=== PATIENT | female | born 1995 | race Caucasian/White ===

== ENCOUNTER 2016-06-02 13:39 | Outpatient (CLI) | payer BC, MEDICAID ==
[2016-06-02 14:53] LABS: APPEARANCE,URINE SLIGHTLY-CLOUDY; BILIRUBIN,URINE NEGATIVE (NEGATIVE); GLUCOSE, URINE NEGATIVE (NEGATIVE); KETONES,URINE NEGATIVE (NEGATIVE); LEUKOCYTE ESTERASE,URINE SMALL (NEGATIVE); NITRITE,URINE NEGATIVE (NEGATIVE); PROTEIN,URINE NEGATIVE (NEGATIVE); URINE SPECIFIC GRAVITY 1.005; UROBILINOGEN,URINE NEGATIVE mg/dL (<2.0)
[2016-06-02 15:24] LABS: URINE BARBITURATES SCREEN NEGATIVE; URINE METHADONE SCREEN NEGATIVE; URINE OPIATES LOW NEGATIVE; URINE PHENCYCLIDINE SCREEN NEGATIVE
--- NOTE | 2016-06-02 15:47 | Non Stress Test Report ---
Non Stress Test Datetime Report Generated by CPN: 06/02/2016 15:47 DEMOGRAPHIC EGA NST: 40.5 INDICATION Indication for Study: Other Indication for Study (NST) Other: LC MONITORING Monitor Explained: Monitor Explained; Other Time on Monitor: 06/02/2016 14:03 Time off Monitor: 06/02/2016 14:23 NST Duration: 20 NST INTERVENTIONS NST Interventions: None Physician Notified NST: C. Rolle CNM BABY A: [id number] BABY A Movement : Present Contraction Frequency : 1-2 FHR Baseline : 145 Accelerations : 15X15 Decelerations : None Variability : Moderate 6-25bpm NST Review: Meets Criteria for Reactive NST NST Review and Verified By : D Bellavance RNC NST Results: Reactive NST REPORT Report Trigger: Send Report
== END 2016-06-02 15:43 | disposition home or self-care (01) ==
LOC: LC 13:39
PROVIDERS: ATTEND Obstetrics & Gynecology
PROC: 4A1HXCZ Monitoring of Products of Conception, Cardiac Rate, External Approach (ICD-10-PCS; principal; 2016-06-02)
DX: O47.1 False labor at or after 37 completed weeks of gestation (principal); O48.0 Post-term pregnancy; Z3A.40 40 weeks gestation of pregnancy
CPT/HCPCS: 59025; 80307; 81005

== ENCOUNTER 2016-06-02 18:27 | Inpatient (IN) | payer BC, MEDICAID ==
[2016-06-02] MEDS ORDERED: RINGERS SOLUTION,LACTATED 1,000 ML IV ONE (18:41)
[2016-06-02] MEDS ORDERED: RINGERS SOLUTION,LACTATED 1,000 ML IV PRN (18:41)
[2016-06-02] MEDS ORDERED: DEXTROSE 5%-LACTATED RINGERS 1,000 ML IV PRN (18:41)
[2016-06-02 19:17] LABS: ABSOLUTE BASOPHILS # (AUTO) 0.1 10^3/uL (0.0-0.2); ABSOLUTE EOSINOPHILS # (AUTO) 0.1 10^3/uL (0.0-0.6); ABSOLUTE LYMPHOCYTES (AUTO) 1.7 10^3/uL (0.5-4.7); ABSOLUTE MONOCYTES (AUTO) 1.2 10^3/uL (0.1-1.4); ABSOLUTE NEUT (AUTO) 14.9 10^3/uL (1.7-8.2); BASOPHILS % (AUTO) 0.4 % (0-2); EOSINOPHILS % (AUTO) 0.3 % (0-6); HEMATOCRIT 43.3 % (36.0-47.0); HEMOGLOBIN 15.1 g/dL (12.0-15.5); LYMPHOCYTES % (AUTO) 9.3 % (13-45); MEAN CORPUSCULAR HEMOGLOBIN 29.5 pg (27.0-33.4); MEAN CORPUSCULAR HGB CONC 34.9 g/dL (32.0-36.0); MEAN CORPUSCULAR VOLUME 85 fl (80-97); MONOCYTES % (AUTO) 6.7 % (3-13); RED BLOOD COUNT 5.12 10^6/uL (3.72-5.28); RED CELL DISTRIBUTION WIDTH 17.8 % (11.5-14.0); SEGMENTED NEUTROPHILS % (AUTO) 83.3 % (42-78); WHITE BLOOD COUNT 17.9 10^3/uL (4.0-10.5)
[2016-06-02] MEDS ORDERED: LIDOCAINE 1% INJ-PF (10 MG/ML) 30 ML SDV ONE (19:39)
[2016-06-02] MEDS ORDERED: MISOPROSTOL 0.2 MG TABLET ONE (19:39)
[2016-06-02] MEDS ORDERED: OXYTOCIN/NORMAL SALINE 20 UNIT/1,000 ML RTUINJ ONE (19:39)
--- NOTE | 2016-06-02 20:00 | L&D Flow Sheet ---
LD Flowsheet Datetime Report Generated by CPN: 06/02/2016 20:00 Datetime: 06/02/2016 19:41 Frequency (min): q2 min (Taryn Knight RN) Pain Scale: 4 (Taryn Knight RN) Pain Presence: Intermittent (Taryn Knight RN) Pain Type: Cramping; Contraction (Taryn Knight RN) Pain Location: Abdomen; Back (Taryn Knight RN) Pain Goal: 0 (Taryn Knight RN) Pain Relief Measures: Comfort Measures (Taryn Knight RN) Pain Coping: Talking Through Contractions; Breathing Through Contractions (Taryn Knight RN) Dilatation (cm): 7.0 (Taryn Knight RN) Effacement (%): 90 (Taryn Knight RN) Station: 0 (Taryn Knight RN) Exam by: ROSIE Martinez (Taryn Knight RN) Membrane Status: Intact (Taryn Knight RN) Vaginal Bleeding: Normal Show (Taryn Knight RN) Level of Consciousness: Fully Conscious (Taryn Knight RN) DTR's/Clonus: DTRs 2+; No Clonus (Taryn Knight RN) Headache: Denies (Taryn Knight RN) Breath Sounds, Left: Clear and Equal (Taryn Knight RN) Breath Sounds, Right: Clear and Equal (Taryn Knight RN) Nausea/Vomiting: Present (Taryn Kinght RN) RUQ Epigastric Pain: Denies (Taryn Knight, RN) Instructional Method: Verbal; Patient Instructed; Family/Support Person Instructed; Verbalized Understanding (Taryn Knight RN) Plan of Care: Plan of Care Discussed; Vaginal Delivery (Taryn Knight RN) Unit Routine: [place] to Room; Call Solorzano; Bed; Visiting Policy; Waiting Areas; Infant Security; Phone/Cell Phone Use; Photography; Unit Personnel; Consents Signed; Handwashing; Flu/Illness Precautions; Monitoring; IV Pumps; Safety/Fall Risk Prevention; Diet/Nutrition Services; Bathroom Privileges (Taryn Knight RN) LaborFlag: Antepartum (QS system process) Datetime: 06/02/2016 18:53 Medication Comments: LR (Demarco Gallardo RN) IV/Blood Work: IV Started; IV Bolus Started; Labs Drawn (Demarco Gallardo RN) Procedures: Consents Signed (Demarco Gallardo RN) Patient Care Comments: 18G R Forearm, good blood return, site wnl, pt tolerated well. (Demarco Gallardo RN) Datetime: 06/02/2016 18:52 Patient Position/Activity: Hands-Knees (Demarco Sami, RN) Patient Care Comments: per pt request (Demarco Sami, RN) Datetime: 06/02/2016 15:43 Communication Comments: Pt ambulated off floor in stable condition (Jeanne Bernstein, RN) Datetime: 06/02/2016 15:40 Communication Comments: D/C instructions given. Reviewed kick counts and labor signs. Pt verbalizes understading. (Jeanne Bernstein, RN) Datetime: 06/02/2016 15:31 Communication Comments: D/C order received per C. Rolle CNM (Jeanne Bernstein RN) Datetime: 06/02/2016 15:30 Dilatation (cm): 3.0 (Jeanne Bernstein RN) Effacement (%): 80 (Jeanne Bernstein RN) Station: -1 (Jeanne Bernstein RN) Exam by: Cara Bernstein RN (Jeanne Bernstein RN) Datetime: 06/02/2016 14:23 Monitor Mode: External; Palpation (Jeanne Bernstein RN) Frequency (min): 1-2 (Jeanne Bernstein RN) Quality: Mild/Moderate (Jeanne Bernstein RN) Duration (sec): 50-70 (Jeanne Bernstein RN) Duration Criteria: Less than Two 120 Second Contractions (Jeanne Bernstein RN) Pattern: Normal: <= 5 Contractions in 10 Minutes (Jeanne Bernstein RN) Resting Tone (Palpate): Relaxed (Jeanne Bernstein RN) Monitor Mode: External US (Jeanne Bernstein RN) FHR Baseline Rate : 145 (Jeanne Bernstein RN) Variability: Moderate 6-25 bpm (Jeanne Bernstein RN) Accelerations: 15X15 (Jeanne Bernstein RN) Decelerations: None (Jeanne Bernstein RN) Communication Comments: Monitors removed for pt to walk for one hour (Jeanne Bernstein RN) Datetime: 06/02/2016 14:21 NBP Sys/Tessie/Mean (mmHg): 96 (QS system process) : 55 (QS system process) : 73 (QS system process) Pulse: 85 (QS system process) LaborFlag: Antepartum (QS system process) Datetime: 06/02/2016 14:15 Dilatation (cm): 3.0 (Jeanne Bernstein RN) Effacement (%): 80 (Jeanne Bernstein RN) Station: -1 (Jeanne Bernstein RN) Exam by: Cara Bernstein RN (Jeanne Bernstein RN) Datetime: 06/02/2016 14:08 Frequency (min): pt states 2 minutes apart (Jeanne Bernstein RN) Pain Scale: 2 (Jeanne Bernstein RN) Pain Presence: Intermittent (Jeanne Bernstein RN) Pain Type: Contraction (Jeanne Bernstein RN) Pain Location: Abdomen; Back (Jeanne Bernstein RN) Vaginal Bleeding: None (Jeanne Bernstein RN) Level of Consciousness: Fully Conscious (Jeanne Bernstein RN) DTR's/Clonus: DTRs 2+; No Clonus (Jeanne Bernstein RN) Headache: Denies (Jeanne Bernstein RN) Breath Sounds, Left: Clear and Equal (Jeanne Bernstein RN) Breath Sounds, Right: Clear and Equal (Jeanne Bernstein RN) Nausea/Vomiting: Denies (Jeanne Bernstein RN) RUQ Epigastric Pain: Denies (Jeanne Bernstein RN) Instructional Method: Verbal; Patient Instructed; Family/Support Person Instructed; Verbalized Understanding (Jeanne Bernstein RN) Plan of Care: Plan of Care Discussed (Jeanne Bernstein RN) Unit Routine: [place] to Room; Call Solorzano; Bed; Handwashing; Monitoring; Bathroom Privileges (Jeanne Bernstein RN) LaborFlag: Antepartum (QS system process) Datetime: 06/02/2016 14:03 Monitor Interventions for UA: Marcellus Adjusted (Jeanne Bernstein, RN) Datetime: 06/02/2016 14:02 Patient Position/Activity: Left Lateral (Jeanne Bernstein RN) I/O Interventions: Clear Liquids Given (Jeanne Bernstein RN)
[2016-06-02] MEDS ORDERED: FENTANYL CITRATE INJ/PF 100 MCG/2 ML AMPUL IV ONE (21:03)
[2016-06-02] MEDS ORDERED: FENTANYL CITRATE INJ/PF 100 MCG/2 ML AMPUL ONE (21:06)
--- NOTE | 2016-06-02 22:00 | L&D Flow Sheet ---
LD Flowsheet Datetime Report Generated by CPN: 06/02/2016 22:00 Datetime: 06/02/2016 21:30 Monitor Mode: External; Palpation (Taryn Field, RN) Frequency (min): 1.5-3 (Taryn Field, RN) Quality: Moderate to Strong (Taryn Field, RN) Duration (sec): 60-90 (Taryn Field, RN) Pattern: Normal: <= 5 Contractions in 10 Minutes (Taryn Field, RN) Resting Tone (Palpate): Relaxed (Taryn Field, RN) Monitor Mode: External US (Taryn Field, RN) FHR Baseline Rate : 120 (Taryn Field, RN) Variability: Moderate 6-25 bpm (Taryn Field, RN) Accelerations: 15X15 (Taryn Field, RN) Decelerations: Late (Taryn Field, RN) Datetime: 06/02/2016 21:06 Analgesics/Sedatives: Fentanyl (mcg) @ 100 (Taryn Knight RN) Datetime: 06/02/2016 21:01 Communication: Provider Orders Received (Taryn Knight RN) Communication Comments: Informed Dr. Tam of patient's request for some IV pain meds; orders received for 100 mcg of Fentanyl (Taryn Knight RN) Datetime: 06/02/2016 21:00 Monitor Mode: External; Palpation (Taryn Knight RN) Frequency (min): 1.5-3.5 (Taryn Knight RN) Quality: Moderate to Strong (Taryn Knight RN) Duration (sec): 60-80 (Taryn Knight RN) Resting Tone (Palpate): Relaxed (Taryn Knight RN) Monitor Mode: External US (Taryn Knight RN) FHR Baseline Rate : 120 (Taryn Knight RN) Variability: Moderate 6-25 bpm (Taryn Knight RN) Accelerations: 15X15 (Taryn Knight RN) Decelerations: None (Taryn Knight RN) Datetime: 06/02/2016 20:57 Patient Position/Activity: Tailors (Taryn Knight RN) Datetime: 06/02/2016 20:54 Dilatation (cm): 6.5 (Taryn Knight RN) Effacement (%): 90 (Taryn Knight RN) Station: -2 (Taryn Knight RN) Exam by: Dr. Tam (Taryn Knight RN) Membrane Status: Meconium (Lita Parkinson RN) Membranes Ruptured Date/Time: 06/02/2016 20:54 (Lita Parkinson RN) Membranes Rupture Method: Artificial (Taryn Knight RN) Amniotic Fluid Color: Moderate [facility] Amniotic Fluid Amount: Moderate (Taryn Knight, RN) Datetime: 06/02/2016 20:52 Communication Comments: Dr. Tam at bedside (Taryn [facility], ) Datetime: 06/02/2016 20:43 I/O Interventions: Up to BR [facility] Datetime: 06/02/2016 20:30 Monitor Mode: External; Palpation [facility] Frequency (min): 1.5-3.5 (Taryn Field, RN) Quality: Moderate to Strong (Taryn Field, RN) Duration (sec): 50-90 (Taryn Field, RN) Pattern: Normal: <= 5 Contractions in 10 Minutes (Taryn Field, RN) Resting Tone (Palpate): Relaxed (Taryn Field, RN) Monitor Mode: External US (Taryn Field, RN) FHR Baseline Rate : 120 (Taryn Field, RN) Variability: Moderate 6-25 bpm (Taryn Field, RN) Accelerations: 15X15 (Taryn Field, RN) Decelerations: None (Taryn Field, RN) Datetime: 06/02/2016 20:13 Nausea/Vomiting: Present (Taryn Knight, RN) Datetime: 06/02/2016 20:05 NBP Sys/Tessie/Mean (mmHg): 117 (QS system process) : 58 (QS system process) : 83 (QS system process) Pulse: 94 (QS system process) LaborFlag: Antepartum (QS system process) Datetime: 06/02/2016 20:00 Monitor Mode: External; Palpation (Taryn Knight RN) Frequency (min): 2-2.5 (Taryn Knight RN) Quality: Moderate to Strong (Taryn Knight RN) Duration (sec): 60-80 (Taryn Knight RN) Pattern: Normal: <= 5 Contractions in 10 Minutes (Taryn Knight RN) Resting Tone (Palpate): Relaxed (Taryn Knight RN) Monitor Mode: External US (Taryn Knight RN) FHR Baseline Rate : 125 (Taryn Knight RN) Variability: Moderate 6-25 bpm (Taryn Knight RN) Accelerations: 15X15 (Taryn Knight RN) Decelerations: None (Taryn Knight RN)
[2016-06-02] MEDS ORDERED: OXYTOCIN/NORMAL SALINE 1,000 ML IV PRN (23:28)
[2016-06-02] MEDS ORDERED: DIBUCAINE 1% OINTMENT 28 GM TP PRN (23:28)
[2016-06-02] MEDS ORDERED: DIPH/PERTUSS(ACELL)/TETANUS VAC/PF 0.5 ML SYR (>=10YO) IM PRN (23:28)
[2016-06-02] MEDS ORDERED: ZOLPIDEM TARTRATE 5 MG TABLET PO PRN (23:28)
[2016-06-02] MEDS ORDERED: ACETAMINOPHEN WITH CODEINE #3 TABLET PO PRN ×2 (23:28)
[2016-06-02] MEDS ORDERED: MEASLES,MUMPS&RUBELLA VACC/PF 0.5 ML VIAL SUBCUT PRN (23:28)
[2016-06-02] MEDS ORDERED: BENZOCAINE/MENTHOL AEROSOL SPRAY 56 ML TOP PRN (23:28)
--- NOTE | 2016-06-03 01:44 | Delivery Summary ---
Del Sum A-C Datetime Report Generated by CPN: 06/03/2016 01:43 ADMISSION DATA Chief Complaint: Uterine Contractions Indication for Induction: Not Applicable Admission Impression: Term, Intrauterine ; Active Labor DELIVERY PERSONNEL Delivery Doctor:: Natalee Tam MD Labor and Delivery Nurse:: Taryn Knight, ethnic origins teacher Nurse:: Lita Parkinson, RN Green Hide Inspector/EYE SURGEON: Júnior Ertel, EYE SURGEON MATERNAL INFORMATION Delivery Anesthesia: None Medications After Delivery: Pitocin Bolus-Please Comment Meds After Delivery Comment: pitocin 20 units in 1000 mL NSS after delivery of placenta Estimated Blood Loss (ml): 200 Maternal Complications: None Provider Comments: meconium LABOR SUMMARY EDC: 05/28/2016 00:00 No. Babies in Womb: 1 Attempted: No Labor Anesthesia: IV Sedation LABOR INFORMATION Reason for Induction: Not Applicable Onset of Labor: 06/02/2016 18:52 Complete Dilatation: 06/02/2016 22:47 Oxytocin: N/A Group B Beta Strep: negative Antibiotics # of Doses: 0 Steroids Given: None Reason Steroids Not Administered: Not Applicable MEMBRANES Membranes Rupture Method: Artificial Rupture of Membranes: 06/02/2016 20:54 Length of Rupture (hr): 2.38 Amniotic Fluid Color: Moderate Meconium Amniotic Fluid Amount: Moderate Amniotic Fluid Odor: Normal STAGES OF LABOR Stage 1 hr: 3 Stage 1 min: 55 Stage 2 hr: 0 Stage 2 min: 30 Stage 3 hr: 0 Stage 3 min: 5 Total Time in Labor hr: 4 Total Time in Labor min: 30 VAGINAL DELIVERY Episiotomy: None Laceration Extension: N/A Laceration Type: None Laceration Repair: Not Applicable Sponge Count Correct: N/A Sharps Count Correct: N/A CSECTION DELIVERY Primary Indication: N/A Secondary Indication: N/A CSection Incidence: N/A Labor: N/A Elective: N/A CSection Incision: N/A BABY A INFORMATION Infant Delivery Date/Time: 06/02/2016 23:17 Method of Delivery: Vaginal Born in Route : No : N/A Forceps: N/A Vacuum Extraction: N/A Shoulder Dystocia : No PRESENTATION/POSITION BABY A Presentation: Cephalic Cephalic Presentation: Vertex Vertex Position: Right Occipital Anterior Breech Presentation: N/A PLACENTA INFORMATION BABY A Placenta Delivery Time : 06/02/2016 23:22 Placenta Method of Delivery: Spontaneous Placenta Status: Delivered SCORES BABY A Heart Rate 1 min: >100 bpm Resp Effort 1 min: Good Cry Reflex Irritability 1 min: Cough or Sneeze or Pulls Away Muscle Tone 1 min: Active Motion Color 1 min: Body Mutual, Extremities Blue Resuscitation Effort 1 min: Tactile Stimulation SCORE 1 MIN: 9 Heart Rate 5 min: >100 bpm Resp Effort 5 min: Good Cry Reflex Irritability 5 min: Cough or Sneeze or Pulls Away Muscle Tone 5 min: Active Motion Color 5 min: Body Mutual, Extremities Blue Resuscitation Effort 5 min: Tactile Stimulation SCORE 5 MIN: 9 INFANT INFORMATION BABY A Gestational Age at Delivery: 40.5 Gestational Status: Full Term- 39- 40.6 Weeks Infant Outcome : Liveborn Infant Condition : Stable Infant Sex: Male IDENTIFICATION BABY A Verification Date/Time: 06/02/2016 23:32 ID Band Number: [id number] Mother's Name Verified: Yes RN Verifying Infant: SPedro Luis Parkinson, RN Additional Verifying Personnel: Lesly Gorman, EYE SURGEON/US WEIGHT/LENGTH BABY A Birthweight (gm): 3505 Infant Weight (lb): 7 Infant Weight (oz): 12 Infant Length (in): 19.50 Length (cm): 49.53 CORD INFORMATION BABY A No. Cord Vessels: 3 Nuchal Cord : N/A Cord Blood Taken: Yes-For Storage (Mom's Blood type +) Infant Suction: Mouth; Nose ASSESSMENT BABY A Infant Complications: Meconium Physical Findings at Delivery: Within Normal Limits Infant Respirations: Appears Normal Skin to Skin: Yes Clay Carman/ALS Called : No Infant Care By: S. Iratibeaharveyir, RN Transferred To: Remains with Mother BABY B INFORMATION : N/A SIGNATURES Signature: with User ID: [email or web address]
[2016-06-03] MEDS: IBUPROFEN 800 MG TABLET PO SCH ×3 (05:41→22:21)
--- NOTE | 2016-06-03 06:00 | L&D General Admission ---
General Admit Datetime Report Generated by CPN: 06/03/2016 06:00 INFORMATION Patient Age: 20 (02/29/2016 18:27:QS system process) EDC: 05/28/2016 00:00 (02/29/2016 18:30:Jeanne Rosenthal RN) : 1 (02/29/2016 18:30:Jeanne Rosenthal RN) Para: 0 (06/02/2016 15:46:Jeanne Bernstein RN) Term: 0 (02/29/2016 18:30:Jeanne Rosenthal RN) : 0 (02/29/2016 18:30:Jeanne Rosenthal RN) Spontaneous Abortions: 0 (02/29/2016 18:30:Jeanne Rosenthal RN) Induced Abortions: 0 (02/29/2016 18:30:Jeanne Rosenthal RN) Livin (02/29/2016 18:30:Jeanne Rosenthal RN) Cesareans: 0 (02/29/2016 18:30:Jeanne Rosenthal RN) VBACs: 0 (02/29/2016 18:30:Jeanne Rosenthal RN) Ectopic: 0 (02/29/2016 18:30:Jeanne Rosenthal RN) Multiple Births: 0 (02/29/2016 18:30:Jeanne Rosenthal RN) Baby, Number in Womb: 1 (06/02/2016 15:46:Jeanne Bernstein RN) CARE Primary Funds Transfer Clerk[facility] (02/29/2016 18:30:Jeanne Rosenthal RN) Month of 1st Visit: 6 weeks (02/29/2016 18:30:Lety Barrow RN) Adequate Care: Yes (02/29/2016 18:30:Jeanne Rosenthal RN) Prepregnancy Weight (lb): 122 (02/29/2016 18:30:Jeanne Rosenthal RN) Prepregnancy Weight (kg): 55.5 (02/29/2016 18:30:QS system process) Height (in): 63 (06/03/2016 02:16:QS system process) ALLERGIES Medication Allergy: No (02/29/2016 18:30:Jeanne Rosenthal RN) Medication Allergies: No Known Allergies (06/02/2016) (06/02/2016 13:56:QS system process) Latex Allergy: No Latex Allergies (02/29/2016 18:30:Jeanne Rosenthal RN) Food Allergies: None (02/29/2016 18:30:Jeanne Rosenthal RN) Environmental Allergies: None (02/29/2016 18:30:Jeanne Rosenthal RN) COMMUNICATION Primary Language: Hungarian (02/29/2016 18:30:Jeanne Rosenthal RN) Medical Tx Preferred Language: Hungarian (02/29/2016 18:30:Jeanne Rosenthal RN) DEMOGRAPHICS Address: [address] [place] [id number] (02/29/2016 18:27:QS system process) Zipcode: [address] (02/29/2016 18:27:QS system process) Home (02/29/2016 18:27:QS system process) SSN: [id number] (02/29/2016 18:27:QS system process) Next of Kin Name: ALLYSON TRIPLETT (06/02/2016 13:39:QS system process) Next of Kin (06/02/2016 13:39:QS system process) Next of Kin Relationship: OR (06/02/2016 13:39:QS system process) Date of : 1995 (02/29/2016 18:27:QS system process) Marital Status: Single (02/29/2016 18:27:QS system process) Sex: Female (02/29/2016 18:27:QS system process) Race: (02/29/2016 18:27:QS system process) Ethnicity: Non- or (02/29/2016 18:27:QS system process) Baptism: None (02/29/2016 18:27:QS system process) DRUG AND ALCOHOL USE Alcohol: No (02/29/2016 18:30:Jeanne Rosenthal RN) Cigarettes: Former Smoker. [id number] (02/29/2016 18:30:Jeanne Rosenthal RN) Marijuana: No (02/29/2016 18:30:Jeanne Rosenthal RN) Cocaine: No (02/29/2016 18:30:Jeanne Rosenthal RN) Other Illicit Drugs: No (02/29/2016 18:30:Jeanne Rosenthal RN) VACCINE HISTORY Influenza Vaccine: No (02/29/2016 18:30:Lety Barrow RN) Pneumococcal Vaccine: No (02/29/2016 18:30:Lety Barrow RN) Tetanus Vaccine: Yes (02/29/2016 18:30:Lety Barrow RN) Tdap Vaccine: Yes (02/29/2016 18:30:Jeanne Bernstein RN) Hepatitis B Vaccine: Yes (02/29/2016 18:30:Lety Barrow RN) Mastic Man: [facility] (02/29/2016 18:30:Jeanne Bernstein RN) Feeding Preference: Breast (02/29/2016 18:30:Lety Barrow RN) Benefit of Breast Feed Discussed: Yes (02/29/2016 18:30:Jeanne Bernstein RN) Circumcision: Yes (02/29/2016 18:30:Lety Barrow RN) Classes Attended: No (02/29/2016 18:30:Lety Barrow RN) Tubal Ligation: No (02/29/2016 18:30:Lety Barrow RN) Tubal Authorization Signed: N/A (02/29/2016 18:30:Lety Barrow RN) Consent: N/A (02/29/2016 18:30:Lety Barrow RN) Consent Signed: N/A (02/29/2016 18:30:Jeanne Bernstein RN) Pain Management Plans: None (02/29/2016 18:30:Lety Barrow RN) Other Labor and Delivery Plans: delayed cord clamping (02/29/2016 18:30:Lety Barrow RN) Support Person: allyson triplett (02/29/2016 18:30:Lety Barrow RN) Support Person Relationship: Other (02/29/2016 18:30:Lety Barrow RN) Other Relationship: fiance (02/29/2016 18:30:Lety Barrow RN) Cultural/Spritual Practice: No (02/29/2016 18:30:Jeanne Bernstein RN) Spir/Cult Dietary Needs: No (02/29/2016 18:30:Jeanne Bernstein RN) LIVING SITUATION/DISCHARGE PLAN Living Arrangements: House (02/29/2016 18:30:Lety Barrow RN) Adequate Access to:: Electric; Heat; Refrigeration; Plumbing/Running water; Phone; Transportation (02/29/2016 18:30:Lety Barrow RN) WIC Program: Yes (02/29/2016 18:30:Lety Barrow RN) Discharge Battery Parts Assembler Person: allyson (02/29/2016 18:30:Lety Barrow RN) Person to Help after Discharge: allyson (02/29/2016 18:30:Lety Barrow RN) Currently Using Commun Resources: Yes (02/29/2016 18:30:Lety Barrow RN) Specify Current Resource Used: Medicaid (02/29/2016 18:30:Lety Barrow RN) Outside Agency/Railcar Switchman: No (02/29/2016 18:30:Lety Barrow RN) Car Seat for Discharge: Yes (02/29/2016 18:30:Lety Barrow RN) Adoption Requested: No (02/29/2016 18:30:Lety Barrow RN) Pt Contact w/ Post : N/A (02/29/2016 18:30:Lety Barrow RN) LABS Blood Type: A Positive (02/29/2016 18:30:Jeanne Rosenthal RN) Antibody Screen: Negative (02/29/2016 18:30:Jeanne Rosenthal RN) Rho(G) this : Not Applicable (02/29/2016 18:30:Jeanne Rosenthal RN) Hemoglobin: 15.1 (06/02/2016 18:49:QS system process) Hematocrit: 43.3 (06/02/2016 18:49:QS system process) MCV: 85 (06/02/2016 18:49:QS system process) Group Beta Strep: negative (02/29/2016 18:30:Jeanne Bernstein RN) Gonorrhea: Negative (02/29/2016 18:30:Jeanne Bernstein RN) Chlamydia: Negative (02/29/2016 18:30:Jeanne Bernstein RN) RPR/VDRL: Nonreactive (02/29/2016 18:30:Jeanne Rosenthal RN) HIV Exposure Test: Negative (02/29/2016 18:30:Jeanne Rosenthal RN) Hepatitis B: Negative (02/29/2016 18:30:Jeanne Rosenthal RN) Rubella: Immune (02/29/2016 18:30:Jeanne oRsenthal RN) OB/PREVIOUS HISTORY Current Procedures: Ultrasound; NST (02/29/2016 18:30:Jeanne Bernstein RN) History of Previous : No (02/29/2016 18:30:Lety Barrow RN) History of Gestational Diabetes: No (02/29/2016 18:30:Jeanne Bernstein RN) History of PIH: No (02/29/2016 18:30:Jeanne Bernstein RN) History of Incompetent Cervix: No (02/29/2016 18:30:Lety Barrow RN) History of Placenta Previa/Abrup: No (02/29/2016 18:30:Jeanne Bernstein RN) History of Macrosomia: No (02/29/2016 18:30:Jeanne Bernstein RN) History of IUGR: No (02/29/2016 18:30:Jeanne Bernstein RN) History of Hemorrhage: No (02/29/2016 18:30:Lety Barrow RN) History of Loss/Stillborn: No (02/29/2016 18:30:Lety Barrow RN) History of : No (02/29/2016 18:30:Lety Barrow RN) History of D (Rh) Sensitization: No (02/29/2016 18:30:Lety Barrow RN) History Recurrent Loss/Stillborn: No (02/29/2016 18:30:Lety Barrow RN) History Depression/PP Depression: No (02/29/2016 18:30:Lety Barrow RN) History of Uterine Anomaly/ERMIAS: No (02/29/2016 18:30:Lety Barrow RN) History of Infertility: No (02/29/2016 18:30:Lety Barrow RN) History of ART Treatment: No (02/29/2016 18:30:Lety Barrow RN) History of ERMIAS: No (02/29/2016 18:30:Lety Barrow RN) Comments Obstetrical History: G1: current , anterior placenta (02/29/2016 18:30:Lety Barrow RN) MEDICAL HISTORY Med Hx Diabetes: No (02/29/2016 18:30:Lety Barrow RN) Med Hx Hypertension: No (02/29/2016 18:30:Lety Barrow RN) Med Hx Heart Disease: No (02/29/2016 18:30:Lety Barrow RN) Med Hx Autoimmune Disorder: No (02/29/2016 18:30:Lety Barrow RN) Med Hx Kidney Disease/UTI: No (02/29/2016 18:30:Lety Barrow RN) Med Hx Neurologic/Epilepsy: No (02/29/2016 18:30:Lety Barrow RN) Med Hx Psychiatric Disorders: No (02/29/2016 18:30:Lety Barrow RN) Med Hx Hepatitis/Liver Disease: No (02/29/2016 18:30:Lety Barrow RN) Med Hx Varicosities/Phlebitis: No (02/29/2016 18:30:Lety Barrow RN) Med Hx Thyroid Dysfunction: No (02/29/2016 18:30:Lety Barrow RN) Med Hx Trauma/Violence: No (02/29/2016 18:30:Lety Barrow RN) Med Hx Blood Transfusion: No (02/29/2016 18:30:Lety Barrow RN) Med Hx Pulmonary (Asthma,TB): Yes (02/29/2016 18:30:Lety Barrow RN) Med Hx Breast: No (02/29/2016 18:30:Lety Barrow RN) Med Hx TRAFFIC LINE PAINTER Surgery: No (02/29/2016 18:30:Lety Barrow RN) Med Hx Hospitalization/Surgery: Yes (02/29/2016 18:30:Lety Barrow RN) Med Hx Anesthetic Complications: No (02/29/2016 18:30:Lety Barrow RN) Med Hx Abnormal Pap Smear: No (02/29/2016 18:30:Lety Barrow RN) Other Medical Diseases: No (02/29/2016 18:30:Lety Barrow RN) Med Hx Significant Family Hx: No (02/29/2016 18:30:Lety Barrow RN) Details of Med/Surg Hx: ashtma: simbacort, albuterol as needed. hospitalized as child for [place] at age 6 seasonal allergies (02/29/2016 18:30:Lety Barrow RN) INFECTIOUS HISTORY Inf Hx Gonorrhea: No (02/29/2016 18:30:Lety Barrow RN) Inf Hx Chlamydia: No (02/29/2016 18:30:Lety Barrow RN) Inf Hx Syphilis: No (02/29/2016 18:30:Lety Barrow RN) Inf Hx HIV/AIDS: No (02/29/2016 18:30:Lety Barrow RN) Inf Hx Human Papilloma Virus: No (02/29/2016 18:30:Lety Barrow RN) Inf Hx Pt/Partner Genital Herpes: No (02/29/2016 18:30:Lety Barrow RN) Inf Hx Tuberculosis/Exposure: No (02/29/2016 18:30:Lety Barrow RN) Inf Hx Hepatitis B,C: No (02/29/2016 18:30:Lety Barrow RN) Inf Hx Rash or Viral Illness: No (02/29/2016 18:30:Lety Barrow RN) GENETIC HISTORY Gen Hx Age >=35 at LAUREN: No (02/29/2016 18:30:Lety Barrow RN) Gen Hx Thalassemia: No (02/29/2016 18:30:Lety Barrow RN) Gen Hx Congenital Heart Defect: No (02/29/2016 18:30:Lety Barrow RN) Gen Hx Neural Tube Defect: No (02/29/2016 18:30:Lety Barrow RN) Gen Hx Down's Syndrome: No (02/29/2016 18:30:Lety Barrow RN) Gen Hx Zi-Sachs: No (02/29/2016 18:30:Lety Barrow RN) Gen Hx Domo: No (02/29/2016 18:30:Lety Barrow RN) Gen Hx Familial Dysautonomia: No (02/29/2016 18:30:Lety Barrow RN) Gen Hx Sickle Cell Disease/Trait: No (02/29/2016 18:30:Lety Barrow RN) Gen Hx Hemophilia/Blood Disorder: No (02/29/2016 18:30:Lety Barrow RN) Gen Hx Muscular Dystrophy: No (02/29/2016 18:30:Lety Barrow RN) Gen Hx Cystic Fibrosis: No (02/29/2016 18:30:Lety Barrow RN) Gen Hx Huntingtons Chorea: No (02/29/2016 18:30:Lety Barrow RN) Gen Hx Mental Retardation/Autism: No (02/29/2016 18:30:Lety Barrow RN) Gen Hx Tested for Fragile X: No (02/29/2016 18:30:Leyt Barrow RN) Gen Hx Other Inher/Chromosomal: No (02/29/2016 18:30:Lety Barrow RN) Gen Hx Maternal Metabolic DO: No (02/29/2016 18:30:Lety Barrow RN) Gen Hx Pt Father or FOB Defect: No (02/29/2016 18:30:Lety Barrow RN) Gen Hx Other Genetic History: No (02/29/2016 18:30:Lety Barrow RN) Gen Hx Drugs/Meds since LMP: Yes (02/29/2016 18:30:Lety Barrow RN) Gen Hx Medications: PNV, alegra, simbacort, albuterol PRN (02/29/2016 18:30:Lety Barrow RN)
--- NOTE | 2016-06-03 06:00 | L&D Current Admission ---
Current Admit Datetime Report Generated by CPN: 06/03/2016 06:00 ADMISSION INFORMATION Current Admit Date/Time: 06/02/2016 18:41 (06/02/2016 18:41:Demarco Gallardo RN) Reason for Admission: Onset of Labor (06/02/2016 18:41:Demarco Gallardo RN) Chief Complaint: Contractions (06/02/2016 19:41:Taryn Knight RN) Medications During : Diphenhydramine (Benedryl); Vitamin; Acetaminophen (Tylenol) (06/02/2016 18:41:Demarco Gallardo RN) EGA per Dates: 40.5 (06/02/2016 18:41:QS system process) Method of Arrival: Ambulatory (06/02/2016 18:41:Demarco Gallardo RN) Admitted From: Home (06/02/2016 18:41:Demarco Gallardo RN) Reason for Induction: Not Applicable (06/02/2016 18:41:Demarco Gallardo RN) Records Available: Yes (06/02/2016 18:41:Demarco Gallardo RN) General Admission Information: Reviewed; Updated; Confirmed (06/02/2016 18:41:Demarco Gallardo RN) General Admission Reviewed By: Benji Gallardo RN (06/02/2016 18:41:Demarco Gallardo RN) BELONGINGS/ADVANCED DIRECTIVES Disposition of Belongings: Kept with Patient (06/02/2016 18:41:Demarco Gallardo RN) Comments Regarding Disposition: See [facility] belongings form filled out by pt (06/02/2016 18:41:Demarco Gallardo RN) Advance Direct for Healthcare: No, and Wants No Information (06/02/2016 18:41:Demarco Gallardo RN) Durable Power of Freight Rate Clerk: No (06/02/2016 18:41:Demarco Gallardo RN) Living Will: No (06/02/2016 18:41:Demarco Gallardo RN) Organ Donor: No (06/02/2016 18:41:Demarco Gallardo RN) Pt Rights Information Given: Yes (06/02/2016 18:41:Demarco Gallardo RN) Pt Understands Pt Rights: Yes (06/02/2016 18:41:Demarco Gallardo RN) LEARNING ASSESSMENT Knowledge Level: Understands L_D Process (06/02/2016 18:41:Demarco Gallardo RN) Barriers to Learning: None (06/02/2016 18:41:Demarco Gallardo RN) Learning Readiness: Motivated (06/02/2016 18:41:Demarco Gallardo RN) Learns Best By: 1 to 1 Instruction (06/02/2016 18:41:Demarco Gallardo RN) Learning Needs: Labor and Delivery Process; Pain Management; Symptoms to Report; Treatment Plan; Medication (06/02/2016 18:41:Demarco Gallardo RN) DOMESTIC VIOLANCE SCREENING Dom Viol Threatened/Hurt: No (06/02/2016 18:41:Demarco Gallardo RN) Hx of Abuse/Neglect past 2yrs: No (06/02/2016 18:41:Demarco Gallardo RN) Feel Unsafe Going Home: No (06/02/2016 18:41:Demarco Gallardo RN) Addt'l Observ Indicating Abuse: No (06/02/2016 18:41:Demarco Gallardo RN) Reason Unable to Complete Screen: N/A, Screen Completed (06/02/2016 18:41:Demarco Gallardo RN) Considered Personal Harm/Suicide: No (06/02/2016 18:41:Demarco Gallardo RN) NUTRITIONAL/FUNCTIONAL SCREENING Problem with Appetite >5 Days: No (06/02/2016 18:41:Demarco Gallardo RN) Chew/Swallow Difficulties: No (06/02/2016 18:41:Demarco Gallardo RN) Inappropriate Wt Gain/Loss: No (06/02/2016 18:41:Demarco Gallardo RN) Presence Skin Breakdown/Ulcer: No (06/02/2016 18:41:Demacro Gallardo RN) Special Diet: No (06/02/2016 18:41:Demarco Gallardo RN) Pt Requests Saw Straightener Visit: No (06/02/2016 18:41:Demarco Gallardo RN) Hx of Any of the Following?: N/A (06/02/2016 18:41:Demarco Gallardo RN) New Diagnosis of: N/A (06/02/2016 18:41:Demarco Gallardo RN) Requires Assist w/Ambulation: No (06/02/2016 18:41:Demarco Gallardo RN) Uses Assist Device to Ambulate: No (06/02/2016 18:41:Demarco Gallardo RN) Pt Requires Help w/ADL's: No (06/02/2016 18:41:Demarco Gallardo RN)
--- NOTE | 2016-06-03 06:15 | L&D Care Plan ---
LD CARE PLANS Datetime Report Generated by CPN: 06/03/2016 06:15 Datetime: 06/02/2016 18:46 Pain State: Risk For (Jeanne Bernstein RN) Related To: Labor and Delivery Process; Treatment and Procedures; Post (Jeanne Bernstein RN) Goal(s): Patients Pain will be Assessed and Managed; Patient will Verbalize Adequate Relief of Pain or the Ability to [place] with Current Pain (Jeanne Bernstein RN) Interventions: Assess Pain Severity on Scale of 0 (None) to 5 (Severe); Assess Type, Location and Intensity of Pain Each Time Client Reports Discomfort and Notify Provider if Unusal Pain Develops; Encourage Proper Breathing and Relaxation Techniques; Offer Alternatives Such as Repositioning, Calm Environment, Massages, Diversional Activities, Ice Pack, Splinting, and Ambulation; Administer Analgesics as Ordered; Assist with Epidural Placement as Appropriate; Evaluate Therapeutic Effectiveness of Medication and Treatments (Jeanne Bernstein RN) Outcome: Patient will Report Absence or Relief of Pain Consistent with Established Pain Goal (Jeanne Bernstein RN) Status: Ongoing (Jeanne Bernstein RN) Outcome: Patient will have a Decrease in Signs and Symptoms of Discomfort (Jeanne Bernstein RN) Status: Ongoing (Jeanne Bernstein RN) Outcome: Pain will be Controlled During Procedures (Jeanne Bernstein RN) Status: Ongoing (Jeanne Bernstein RN) Anxiety State: Risk For (Jeanne Bernstein RN) Related To: Labor and Delivery Process; Fear of Unknown; Situational Crisis; Medical Interventions; Significant Life Event (Jeanne Bernstein RN) Goal(s): Patient will have Decreased Anxiety and be able to Function at Acceptable Levels (Jeanne Bernstein RN) Interventions: Assess Verbal and Nonverbal Behavioral Indicators of Anxiety; Assist Patient to Identify and Verbalize Symptoms of Anxiety; Identify and Demonstrate Techniques to Control Anxiety; Assist Patient with Coping Mechanisms to Manage Anxiety; Provide Theraputic Touch for the Patient; Explain to Patient, Using a Calm Reassuring Approach and Nonmedical Terms, All Activities, Procedures, and Concerns; Instruct Patient and Family about Post Discharge Care, Limitations, Symptoms to Report and Resources Available (Jeanne Bernstein RN) Outcome: Patient will Identify, Verbalize and Demonstrate Techniques to Control Anxiety (Jeanne Bernstein RN) Status: Ongoing (Jeanne Bernstein RN) Outcome: Patient's Posture, Facial Expressions, Gestures and Activity Level will Reflect Decreased Anxiety (Jeanne Bernstein RN) Status: Ongoing (Jeanne Bernstein RN) Outcome: Patient will Verbalize a Sense of Control and/or Acceptance of the Situation (Jeanne Bernstein RN) Status: Ongoing (Jeanne Bernstein RN) Outcome: Patient will Identify and Utilize Support Person (Jeanne Bernstein RN) Status: Ongoing (Jeanne Bernstein RN) Knowledge Deficit State: Risk For (Jeanne Bernstein RN) Related To: Labor and Delivery Process; Treatment and Procedures (Jeanne Bernstein RN) Goal(s): Patient will Accurately Verbalize Understanding of Plan of Care and Treatment; Patient and Family will Accurately Verbalize Understanding of the Disease Process (Jeanne Bernstein RN) Interventions: Assess Motivation and Willingness of Patient/Family to Learn; Assess Preferred Learning Mode: One to One Instruction, Reading, Videos, Group Discussion or Demonstration; Assess Barriers to Learning: Pain, Emotional State, Language Barrier, Cognitive Impairment, Visual or Hearing Deficits; Assess Patient and Family Knowledge of Disease Process, Medications and Treatment; Discuss Therapy and/or Treatment Options, Describe Rationale Behind Management, Therapy and Treatment Recommendations; Instruct Patient and Family on Signs and Symptoms to Report; Instruct Patient and Family on Medication Effects and Side Effects; Provide Appropriate and Timely Education Using Multiple Techniques; Provide Patient and Family with Support Group Information and Resources; Give Clear and Thorough Explanations and Demonstrations (Jeanne Bernstein RN) Outcome: Patient and Family will Verbalize Understanding of Condition, Treatment and Signs and Symptoms to Report (Jeanne Bernstein RN) Status: Ongoing (Jeanne Bernstein RN) Outcome: Patient will Identify Perceived Learning Needs and Express Motivation to Learn (Jeanne Bernstein RN) Status: Ongoing (Jeanne Bernstein RN) Outcome: Patient will Verbalize Understanding of Desired Content, and/or Performs Desired Skill Prior to Discharge (Jeanne Bernstein RN) Status: Ongoing (Jeanne Bernstein RN) Infection State: Risk For (Jeanne Bernstein RN) Related To: Invasive Procedures (Jeanne Bernstein RN) Goal(s): The Patient will be Free of Infection, Vital Signs Stable and Lab Work within Normal Parameters (Jeanne Bernstein, RN) Interventions: Instruct and Reinforce Proper Handwashing, Hygiene, and Care Techniques to Patient and Family; Monitor Vital Signs; Monitor Patient for the Following Signs of Infection: Fever, Abdominal Tenderness, Unusual Discharge; Monitor Aminiotic Fluid, Urine and Lochia for Color and Odor; Observe Wounds, Incisions and Invasive Line Sites for Redness, Drainage and Edema; Assess IV Sites per Hospital Policy; Monitor Lab and Test Results and Notify Provider of Abnormal Findings; Assess Nutritional Status and Promote Good Nutrition (Jeanne Bernstein RN) Outcome: Patient will Remain Free of Infection (Jeanne Bernstein RN) Status: Ongoing (Jeanne Bernstein RN) Outcome: Infection will be Recognized Early to Allow for Prompt Treatment (Jeanne Bernstein RN) Status: Ongoing (Jeanne Bernstein, RN) Outcome: Patient will have Vital Signs Within Expected Range (Jeanne Bernstein, RN) Status: Ongoing (Jeanne Bernstein, RN) Fluid Volume State: Not Applicable (Jeanne Bernstein RN) Injury State: Risk For (Jeanne Bernstein RN) Related To: Labor and Delivery Process (Jeanne Bernstein RN) Goal(s): Patient will Remain Free from Injury (Jeanne Bernstein RN) Interventions: Monitoring as per Hospital Protocol; Assess Neurological Status; Perform Risk Assessment of Patients with Induction and ; Perform Fall Risk Assessment and Prevention per Hospital Protocol; Perform DVT Risk Assessment and Prophylaxis per Hospital Protocol; Ensure that Oxygen, Suction, and Resuscitation Medications and Equipment are Readily Available; Confirm Patient ID Prior to Procedure(s) and Medication Administration per Hospital Policy (Jeanne Bernstein RN) Outcome: Successful Fall Risk Prevention (Jeanne Bernstein RN) Status: Ongoing (Jeanne Bernstein RN) Outcome: Patient will Deliver without Adverse [place] (Jeanne Bernstein RN) Status: Ongoing (Jeanne Bernstein RN) Outcome: Patient's Neurological Status will Remain Stable (Jeanne Bernstein RN) Status: Ongoing (Jeanne Bernstein RN) Impaired Skin Integrity State: Risk For (Jeanne Bernstein RN) Related To: Vaginal Delivery; Invasive Procedures (Jeanne Bernstein RN) Goal(s): Patient will Maintain Optimal Skin Integrity, Free of Breakdown, Injury or Infection (Jeanne Bernstein, RN) Interventions: Complete Screening for Pressure Ulcer Risk and Initiate Protocol per Hospital Policy; Monitor Site of Skin Impairment for Color Changes, Redness, Swelling, Warmth, Pain or Other Signs of Infection; Encourage and Assist with Position Changes; Monitor Patient's Mobility Status; Provide Adequate Nutrition and Fluids; Teach Patient Appropriate Hygienic Care; Teach Patient/Family Skin Care Management (Jeanne Bernstein, RN) Outcome: Patient will not have Evidence of Injury Such as Skin Breakdown, Scrapes, Cuts, or Bruising (Jeanne Bernstein RN) Status: Ongoing (Jeanne Bernstein RN) Outcome: Patient will Report Any Altered Sensation or Pain at Site of Skin Impairment (Jeanne Bernstein, RN) Status: Ongoing (Jeanne Bernstein RN) Outcome: Patients Incisions and Wounds will be without Signs or Symptoms of Infection (Jeanne Bernstein, RN) Status: Ongoing (Jeanne Bernstein RN) Outcome: Patient will Demonstrate Understanding of Plan to Heal Skin and Prevent Reinjury and Verbalize Risk Factors (Jeanne Bernstein, RN) Status: Ongoing (Jeanne Bernstein, RN) Parenting Impaired State: Not Applicable (Jeanne Bernstein RN) Nutrition State: Risk For (Jeanne Bernstein RN) Related To: ; (Jeanne Bernstein RN) Goal(s): Patient will have an Intake of Nutrients Sufficient to Meet Metabolic Needs (Jeanne Bernstein RN) Interventions: Nutritional Screening and Assessment per Hospital Policy; Consult Power Line Lineman for Further Assessment and Recommendations Regarding Food Preferences and Nutritional Support; Allow Patient to Plan and Order Diet when Possible; Monitor Laboratory Values That Indicate Nutritional Well-being; Consult Exceptional Needs Teacher for Nutritional Support Regarding Requirements; Document Actual Weight Initially and Weekly (Do Not Estimate); Encourage Patient Participation in Maintaining a Food Log as Indicated; Educate Patient on the Importance of Maintaining an Adequate Caloric Intake (Jeanne Bernstein RN) Outcome: Patient will Receive Adequate Calories and Fluid Volume to Meet Metabolic Needs (Jeanne Bernstein RN) Status: Ongoing (Jeanne Bernstein RN) Outcome: Patient will Select Foods or Meals that Support Adequate Nutrition (Jeanne Bernstein RN) Status: Ongoing (Jeanne Bernstein RN) Grieving State: Not Applicable (Jeanne Bernstein RN) Additional Care Plan State: Not Applicable (Jeanne Bernstein RN)
--- NOTE | 2016-06-03 06:15 | L&D Flow Sheet ---
LD Flowsheet Datetime Report Generated by CPN: 06/03/2016 06:15 Datetime: 06/03/2016 01:24 NBP Sys/Tessie/Mean (mmHg): 104 (QS system process) : 55 (QS system process) : 74 (QS system process) Pulse: 68 (QS system process) Datetime: 06/03/2016 01:23 NBP Sys/Tessie/Mean (mmHg): 97 (QS system process) : 56 (QS system process) : 71 (QS system process) Pulse: 75 (QS system process) Datetime: 06/03/2016 01:15 Stage of : Recovery (Taryn Field, RN) Datetime: 06/03/2016 01:00 Stage of : Recovery (Taryn Field, RN) Datetime: 06/03/2016 00:45 Stage of : Recovery (Taryn Field, RN) Datetime: 06/03/2016 00:31 NBP Sys/Tessie/Mean (mmHg): 106 (QS system process) : 63 (QS system process) : 71 (QS system process) Pulse: 77 (QS system process) Datetime: 06/03/2016 00:30 Stage of : Recovery (Taryn Field, RN) Datetime: 06/03/2016 00:16 NBP Sys/Tessie/Mean (mmHg): 110 (QS system process) : 57 (QS system process) : 79 (QS system process) Pulse: 70 (QS system process) Datetime: 06/03/2016 00:15 Stage of : Recovery (Taryn Knight, RN) Datetime: 06/03/2016 00:00 Stage of : Recovery (Taryn Knight ROSIE) Temperature (F): 98.4 (Taryn nKight RN) Temperature (C): 36.9 (QS system process) Temperature Route: Axillary (Taryn Knight RN) Datetime: 06/02/2016 23:45 Stage of : Recovery (Taryn Knight RN) NBP Sys/Tessie/Mean (mmHg): 111 (QS system process) : 59 (QS system process) : 79 (QS system process) Pulse: 89 (QS system process) Datetime: 06/02/2016 23:30 Stage of : Recovery (Taryn Knight, RN) Datetime: 06/02/2016 23:10 Actions for Decelerations: Oxygen Applied (Taryn Knight, RN) Datetime: 06/02/2016 23:02 Communication Comments: dr. Tam at bedside (Taryn , RN) Datetime: 06/02/2016 23:00 Monitor Mode: External; Palpation (Taryn Field, RN) Frequency (min): 2-3 (Taryn Field, RN) Quality: Strong (Taryn Field, RN) Duration (sec): 70-100 (Taryn Field, RN) Resting Tone (Palpate): Relaxed (Taryn Field, RN) Monitor Mode: External US (Taryn Field, RN) FHR Baseline Rate : 110 (Taryn Field, RN) Variability: Moderate 6-25 bpm (Taryn Field, RN) Accelerations: 15X15 (Taryn Field, RN) Decelerations: Late; Variable (Taryn Field, RN) Datetime: 06/02/2016 22:59 Communication Comments: Dr Mcmanus called for delivery (Andreia Virginia, RN) Datetime: 06/02/2016 22:49 Pushing: Coached on Pushing (Taryn Field, RN) Pushing Position: Pushing with Contractions (Taryn Field, RN) Datetime: 06/02/2016 22:47 Dilatation (cm): 10.0 (Lita Lattibeaudeir, RN) Effacement (%): 100 (Lita Lattibeaudeir, RN) Station: 1 (Lita Lattibeaudeir, RN) Exam by: S. Lattibeaudeir, RN (Lita Lattibeaudeir, RN) Datetime: 06/02/2016 22:46 Dilatation (cm): 9.5 (Taryn Field, RN) Effacement (%): 100 (Taryn Field, RN) Station: 1 (Taryn Field, RN) Exam by: SMaritibeaharveyir (Taryn Field, RN) Datetime: 06/02/2016 22:30 Monitor Mode: External; Palpation (Taryn Field, RN) Frequency (min): 2-4 (Taryn Knight, RN) Quality: Moderate to Strong (Taryn Field, RN) Duration (sec): 60-90 (Taryn Field, RN) Pattern: Normal: <= 5 Contractions in 10 Minutes (Taryn Field, RN) Resting Tone (Palpate): Relaxed (Taryn Field, RN) Monitor Mode: External US (Taryn Field, RN) FHR Baseline Rate : 120 (Taryn Field, RN) Variability: Moderate 6-25 bpm (Taryn Field, RN) Accelerations: 15X15 (Taryn Field, RN) Decelerations: Late; Variable (Taryn Field, RN) Datetime: 06/02/2016 22:28 Patient Care Comments: Offered Patient squat bar; patient states she can't do that right now and wants to stay on peanut ball. (Taryn Field, RN) Datetime: 06/02/2016 22:21 Patient Position/Activity: Left Extreme; Peanut Ball (Taryn Field, RN) Datetime: 06/02/2016 22:08 Patient Position/Activity: Hands-Knees (Taryn Field, RN) Pushing: Urge to Push (Taryn Field, RN) Datetime: 06/02/2016 22:05 Dilatation (cm): 8.0 (Taryn Field, RN) Effacement (%): 90 (Taryn Knight RN) Station: 0 (Taryn Knight RN) Exam by: ROSIE Martinez (Taryn Knight RN) Datetime: 06/02/2016 22:01 Patient Position/Activity: Left Extreme; Peanut Ball; Semi-Fowlers (Taryn Knight RN) Datetime: 06/02/2016 22:00 Monitor Mode: External; Palpation (Taryn Knight RN) Frequency (min): 2-5 (Taryn Knight RN) Quality: Moderate to Strong (Taryn Knight RN) Duration (sec): 60-100 (Taryn Knight RN) Pattern: Normal: <= 5 Contractions in 10 Minutes (Taryn Knight RN) Resting Tone (Palpate): Relaxed (Taryn Knight RN) Monitor Mode: External US (Taryn Knight RN) FHR Baseline Rate : 120 (Taryn Knight RN) Variability: Moderate 6-25 bpm (Taryn Knight RN) Accelerations: 15X15 (Taryn Field, RN) Decelerations: Late (Taryn Field, RN) Datetime: 06/02/2016 21:30 Monitor Mode: External; Palpation (Taryn Field, RN) Frequency (min): 1.5-3 (Taryn Field, RN) Quality: Moderate to Strong (Taryn Field, RN) Duration (sec): 60-90 (Taryn Field, RN) Pattern: Normal: <= 5 Contractions in 10 Minutes (Taryn Field, RN) Resting Tone (Palpate): Relaxed (Taryn Field, RN) Monitor Mode: External US (Taryn Field, RN) FHR Baseline Rate : 120 (Taryn Field, RN) Variability: Moderate 6-25 bpm (Taryn Field, RN) Accelerations: 15X15 (Taryn Field, RN) Decelerations: Late (Tarny Field, RN) Datetime: 06/02/2016 21:06 Analgesics/Sedatives: Fentanyl (mcg) @ 100 (Taryn Field, RN) Datetime: 06/02/2016 21:01 Communication: Provider Orders Received (Taryn Knight RN) Communication Comments: Informed Dr. Tam of patient's request for some IV pain meds; orders received for 100 mcg of Fentanyl (Taryn Knight, RN) Datetime: 06/02/2016 21:00 Monitor Mode: External; Palpation (Taryn Knight, RN) Frequency (min): 1.5-3.5 (Taryn Knight, RN) Quality: Moderate to Strong (Taryn Knight, RN) Duration (sec): 60-80 (Taryn Knight, RN) Resting Tone (Palpate): Relaxed (Taryn Knight, RN) Monitor Mode: External US (Taryn Knight, RN) FHR Baseline Rate : 120 (Taryn Knight, RN) Variability: Moderate 6-25 bpm (Taryn , RN) Accelerations: 15X15 (Taryn , RN) Decelerations: None (Taryn Knight, RN) Datetime: 06/02/2016 20:57 Patient Position/Activity: Tailors (Taryn Knight RN) Datetime: 06/02/2016 20:54 Dilatation (cm): 6.5 (Taryn Knight RN) Effacement (%): 90 (Taryn Knight RN) Station: -2 (Taryn Knight RN) Exam by: Dr. Tam (Taryn Knight RN) Membrane Status: Meconium (Lita Parkinson RN) Membranes Ruptured Date/Time: 06/02/2016 20:54 (Lita Parkinson RN) Membranes Rupture Method: Artificial (Taryn Knight RN) Amniotic Fluid Color: Moderate Meconium (Taryn Knight RN) Amniotic Fluid Amount: Moderate (Taryn Knight RN) Datetime: 06/02/2016 20:52 Communication Comments: Dr. Tam at bedside (Taryn Field, RN) Datetime: 06/02/2016 20:43 I/O Interventions: Up to BR (Taryn Field, RN) Datetime: 06/02/2016 20:30 Monitor Mode: External; Palpation (Taryn Field, RN) Frequency (min): 1.5-3.5 (Taryn Field, RN) Quality: Moderate to Strong (Taryn Field, RN) Duration (sec): 50-90 (Taryn Field, RN) Pattern: Normal: <= 5 Contractions in 10 Minutes (Taryn Field, RN) Resting Tone (Palpate): Relaxed (Taryn Field, RN) Monitor Mode: External US (Taryn Field, RN) FHR Baseline Rate : 120 (Taryn Field, RN) Variability: Moderate 6-25 bpm (Taryn Field, RN) Accelerations: 15X15 (Taryn Field, RN) Decelerations: None (Taryn Field, RN) Datetime: 06/02/2016 20:13 Nausea/Vomiting: Present (Taryn Field, RN) Datetime: 06/02/2016 20:05 NBP Sys/Tessie/Mean (mmHg): 117 (QS system process) : 58 (QS system process) : 83 (QS system process) Pulse: 94 (QS system process) LaborFlag: Antepartum (QS system process) Datetime: 06/02/2016 20:00 Monitor Mode: External; Palpation (Taryn Knight RN) Frequency (min): 2-2.5 (Taryn Knight RN) Quality: Moderate to Strong (Taryn Knight RN) Duration (sec): 60-80 (Taryn Knight RN) Pattern: Normal: <= 5 Contractions in 10 Minutes (Taryn Knight RN) Resting Tone (Palpate): Relaxed (Taryn Knight RN) Monitor Mode: External US (Taryn Knight RN) FHR Baseline Rate : 125 (Taryn Knight RN) Variability: Moderate 6-25 bpm (Taryn Knight RN) Accelerations: 15X15 (Taryn Knight RN) Decelerations: None (Taryn Knight RN) Datetime: 06/02/2016 19:41 Frequency (min): q2 min (Taryn Knight RN) Pain Scale: 4 (Taryn Knight RN) Pain Presence: Intermittent (Taryn Knight RN) Pain Type: Cramping; Contraction (Taryn Knight RN) Pain Location: Abdomen; Back (Taryn Knight RN) Pain Goal: 0 (Taryn Knight RN) Pain Relief Measures: Comfort Measures (Taryn Knight RN) Pain Coping: Talking Through Contractions; Breathing Through Contractions (Taryn Knight RN) Dilatation (cm): 7.0 (Taryn Knight RN) Effacement (%): 90 (Taryn Knight RN) Station: 0 (Taryn Knight RN) Exam by: ROSIE Martinez (Taryn Knight RN) Membrane Status: Intact (Taryn Knight RN) Vaginal Bleeding: Normal Show (Taryn Knight RN) Level of Consciousness: Fully Conscious (Taryn Knight RN) DTR's/Clonus: DTRs 2+; No Clonus (Taryn Knight RN) Headache: Denies (Taryn Knight RN) Breath Sounds, Left: Clear and Equal (Taryn Knight RN) Breath Sounds, Right: Clear and Equal (Taryn Knight RN) Nausea/Vomiting: Present (Taryn Knight RN) RUQ Epigastric Pain: Denies (Taryn Knight RN) Instructional Method: Verbal; Patient Instructed; Family/Support Person Instructed; Verbalized Understanding (Taryn Knight RN) Plan of Care: Plan of Care Discussed; Vaginal Delivery (Taryn Knight RN) Unit Routine: [place] to Room; Call [place]; Bed; Visiting Policy; Waiting Areas; Security; Phone/Cell Phone Use; Photography; Unit Personnel; Consents Signed; Handwashing; Flu/Illness Precautions; Monitoring; IV Pumps; Safety/Fall Risk Prevention; Diet/Nutrition Services; Bathroom Privileges (Taryn Knight RN) LaborFlag: Antepartum (QS system process) Datetime: 06/02/2016 19:32 Patient Position/Activity: Standing (Taryn Knight RN) Datetime: 06/02/2016 19:30 Monitor Mode: External; Palpation (Taryn Field, RN) Frequency (min): 2-3 (Taryn Field, RN) Quality: Moderate (Taryn Field, RN) Duration (sec): 60-80 (Taryn Field, RN) Pattern: Normal: <= 5 Contractions in 10 Minutes (Taryn Field, RN) Resting Tone (Palpate): Relaxed (Taryn Field, RN) Monitor Mode: External US (Taryn Field, RN) FHR Baseline Rate : 120 (Taryn Field, RN) Variability: Moderate 6-25 bpm (Taryn Field, RN) Accelerations: 10X10 (Taryn Field, RN) Decelerations: None (Taryn Field, RN) Datetime: 06/02/2016 19:27 I/O Interventions: Clear Liquids Given (Taryn Field, RN) Datetime: 06/02/2016 19:15 I/O Interventions: Up to BR (Taryn Field, RN) Datetime: 06/02/2016 19:12 Nausea/Vomiting: Present (Taryn Field, RN) Datetime: 06/02/2016 19:00 Monitor Mode: External; Palpation (Taryn Field, RN) Frequency (min): 1-4 (Taryn Field, RN) Quality: Moderate (Taryn Field, RN) Duration (sec): 60-80 (Taryn Field, RN) Pattern: Normal: <= 5 Contractions in 10 Minutes (Taryn Field, RN) Resting Tone (Palpate): Relaxed (Taryn Field, RN) Monitor Mode: External US (Taryn Field, RN) FHR Baseline Rate : 120 (Taryn Field, RN) Variability: Moderate 6-25 bpm (Taryn Field, RN) Accelerations: 15X15 (Taryn Field, RN) Decelerations: None (Taryn Field, RN) Datetime: 06/02/2016 18:53 Medication Comments: LR (Demarco Gallardo RN) IV/Blood Work: IV Started; IV Bolus Started; Labs Drawn (Demarco Gallardo RN) Procedures: Consents Signed (Demarco Gallardo RN) Patient Care Comments: 18G R Forearm, good blood return, site wnl, pt tolerated well. (Demarco Gallardo RN) Datetime: 06/02/2016 18:52 Patient Position/Activity: Hands-Knees (Demarco Gallardo RN) Patient Care Comments: per pt request (Demarco Gallardo RN)
[2016-06-03 07:38] LABS: HEMATOCRIT 39.5 % (36.0-47.0); HEMOGLOBIN 13.6 g/dL (12.0-15.5); HGB HCT DIFFERENCE 1.3; MEAN CORPUSCULAR HEMOGLOBIN 29.5 pg (27.0-33.4); MEAN CORPUSCULAR HGB CONC 34.3 g/dL (32.0-36.0); MEAN CORPUSCULAR VOLUME 86 fl (80-97); RED BLOOD COUNT 4.61 10^6/uL (3.72-5.28); RED CELL DISTRIBUTION WIDTH 18.2 % (11.5-14.0); WHITE BLOOD COUNT 20.6 10^3/uL (4.0-10.5)
[2016-06-03] MEDS: SENNOSIDES/DOCUSATE 8.6-50 MG 1 EACH TABLET PO SCH (09:51)
[2016-06-03] MEDS: PRENATAL VITAMIN W-O CA NO5/FE FUMARATE/FA CAPSULE PO SCH (09:51)
[2016-06-03] MEDS: DOCUSATE SODIUM 100 MG CAPSULE PO SCH ×2 (09:51→18:06)
[2016-06-03] MEDS: FERROUS SULFATE 325 MG TABLET PO SCH ×2 (09:52→18:06)
--- NOTE | 2016-06-03 16:29 | PDOC PROGRESS REPORT ---
Subjective-OB Subjective: Post Delivery Day: 21 year old. Denies any needs at this time resting reports small clot ff@u-1 mild lochia in nicu anticipate d/c in AM Physical Exam (OB) Vital Signs: Temp Pulse Resp BP Pulse Ox 97.8 F 74 16 113/69 100 06/03/16 07:28 06/03/16 07:28 06/03/16 07:28 06/03/16 07:28 06/03/16 07:28 Intake & Output 06/02/16 06/03/16 06/04/16 06:59 06:59 06:59 Intake Total 350 Balance 350 Weight 71.1 kg - PIH/Pre-Eclampsia Clonus: Negative Headache: Absent Epigastric Pain: No Visual Changes: No - Abdomen Description: Firm, Round Hernia Present: No Fundal Description: Firm, Midline Fundal Height: u/u - u/2 Objective-Diagnostic Laboratory: 06/03/16 07:18 06/02/16 06/02/16 06/03/16 18:49 18:49 07:18 WBC 17.9 H 20.6 H RBC 5.12 4.61 Hgb 15.1 13.6 Hct 43.3 39.5 MCV 85 86 MCH 29.5 29.5 MCHC 34.9 34.3 RDW 17.8 H 18.2 H Plt Count 182 195 Seg Neutrophils % 83.3 H Lymphocytes % 9.3 L Monocytes % 6.7 Eosinophils % 0.3 Basophils % 0.4 Absolute Neutrophils 14.9 H Absolute Lymphocytes 1.7 Absolute Monocytes 1.2 Absolute Eosinophils 0.1 Absolute Basophils 0.1 Blood Type A POSITIVE Antibody Screen NEGATIVE
[2016-06-04] MEDS: IBUPROFEN 800 MG TABLET PO SCH ×3 (06:13→22:13)
[2016-06-04] MEDS: PRENATAL VITAMIN W-O CA NO5/FE FUMARATE/FA CAPSULE PO SCH (09:43)
[2016-06-04] MEDS: SENNOSIDES/DOCUSATE 8.6-50 MG 1 EACH TABLET PO SCH (09:44)
[2016-06-04] MEDS: DOCUSATE SODIUM 100 MG CAPSULE PO SCH ×2 (09:44→18:46)
[2016-06-04] MEDS: FERROUS SULFATE 325 MG TABLET PO SCH ×2 (09:45→18:46)
[2016-06-04 10:20] LABS: ABSOLUTE BASOPHILS # (AUTO) 0.1 10^3/uL (0.0-0.2); ABSOLUTE EOSINOPHILS # (AUTO) 0.2 10^3/uL (0.0-0.6); ABSOLUTE LYMPHOCYTES (AUTO) 2.4 10^3/uL (0.5-4.7); ABSOLUTE MONOCYTES (AUTO) 0.8 10^3/uL (0.1-1.4); ABSOLUTE NEUT (AUTO) 9.5 10^3/uL (1.7-8.2); BASOPHILS % (AUTO) 0.5 % (0-2); EOSINOPHILS % (AUTO) 1.2 % (0-6); HEMATOCRIT 40.1 % (36.0-47.0); HEMOGLOBIN 13.4 g/dL (12.0-15.5); HGB HCT DIFFERENCE 0.1; LYMPHOCYTES % (AUTO) 18.9 % (13-45); MEAN CORPUSCULAR HGB CONC 33.4 g/dL (32.0-36.0); MEAN CORPUSCULAR VOLUME 87 fl (80-97); RED BLOOD COUNT 4.62 10^6/uL (3.72-5.28); RED CELL DISTRIBUTION WIDTH 18.1 % (11.5-14.0); SEGMENTED NEUTROPHILS % (AUTO) 73.4 % (42-78); WHITE BLOOD COUNT 12.9 10^3/uL (4.0-10.5)
[2016-06-04 11:00] LABS: ANISOCYTOSIS 2+; TOXIC GRANULATION SLIGHT
--- NOTE | 2016-06-04 13:35 | PDOC PROGRESS REPORT ---
Subjective-OB Subjective: Post Delivery Day: 21 year old. Denies any needs at this time. Pt doing well, no concerns. She reports light bleeding, regular diet and voiding well. Physical Exam (OB) Vital Signs: Temp Pulse Resp BP Pulse Ox 98.9 F 67 16 102/62 100 06/04/16 08:41 06/04/16 08:41 06/04/16 08:41 06/04/16 08:06 06/04/16 08:41 Intake & Output 06/03/16 06/04/16 06/05/16 06:59 06:59 06:59 Intake Total 350 Balance 350 Weight 71.1 kg - Lochia Lochia Amount: Small 10-25 ml Lochia Color: Rubra/Red - Abdomen Description: Soft Hernia Present: No Fundal Description: Firm, Midline Fundal Height: u/u - u/2 Objective-Diagnostic Laboratory: 06/04/16 10:07 06/04/16 10:07 WBC 12.9 H RBC 4.62 Hgb 13.4 Hct 40.1 MCV 87 MCH 29.0 MCHC 33.4 RDW 18.1 H Plt Count 175 Seg Neutrophils % 73.4 Lymphocytes % 18.9 Monocytes % 6.0 Eosinophils % 1.2 Basophils % 0.5 Absolute Neutrophils 9.5 H Absolute Lymphocytes 2.4 Absolute Monocytes 0.8 Absolute Eosinophils 0.2 Absolute Basophils 0.1 Assessment and Plan(PN) - Assessment and Plan (1) Vaginal delivery Is this a current diagnosis for this admission?: Yes - Time Spent with Patient Time with patient: Less than 15 minutes Medications reviewed and adjusted accordingly: Yes - Disposition Anticipated Discharge: Home Within: within 24 hours
[2016-06-05] MEDS: IBUPROFEN 800 MG TABLET PO SCH (06:11)
[2016-06-05 08:58] VITALS: BP 108/68
[2016-06-05] MEDS: PRENATAL VITAMIN W-O CA NO5/FE FUMARATE/FA CAPSULE PO SCH (09:17)
[2016-06-05] MEDS: SENNOSIDES/DOCUSATE 8.6-50 MG 1 EACH TABLET PO SCH (09:17)
[2016-06-05] MEDS: DOCUSATE SODIUM 100 MG CAPSULE PO SCH (09:17)
[2016-06-05] MEDS: FERROUS SULFATE 325 MG TABLET PO SCH (09:17)
--- NOTE | 2016-06-05 11:22 | PDOC PROGRESS REPORT ---
Subjective-OB Subjective: Post Delivery Day: 21 year old. Denies any needs at this time. Physically ready to go home but baby's discharge dependent on labs later today. Physical Exam (OB) Vital Signs: Temp Pulse Resp BP Pulse Ox 98.0 F 63 16 108/68 96 06/05/16 07:49 06/05/16 07:49 06/05/16 07:49 06/05/16 07:49 06/05/16 07:49 Intake & Output 06/04/16 06/05/16 06/06/16 06:59 06:59 06:59 Intake Total 350 600 Balance 350 600 - PIH/Pre-Eclampsia Clonus: Negative Headache: Absent Epigastric Pain: No Visual Changes: No - Lochia Lochia Amount: Scant < 10 ml Lochia Color: Rubra/Red - Abdomen Description: Firm, Round Hernia Present: No Bowel Sounds: Normoactive Flatus Presence: Present Stool: Yes Fundal Description: Firm, Midline Fundal Height: u/u - u/2 Objective-Diagnostic Laboratory: 06/04/16 10:07 Assessment and Plan(PN) - Time Spent with Patient Medications reviewed and adjusted accordingly: Yes - Disposition Anticipated Discharge: Home
--- NOTE | 2016-06-05 11:28 | PDOC DISCHARGE SUMMARY ---
Final Diagnosis Discharge Date: 06/05/16 - Final Diagnosis (1) Is this a current diagnosis for this admission?: Yes (2) Vaginal delivery Is this a current diagnosis for this admission?: Yes Discharge Data - Discharge Medication Home Medications: Albuterol Sulfate [Proair HFA Inhalation Aerosol 8.5 gm MDI] 2 inh IH Q4 PRN Budesonide/Formoterol Fumarate [Symbicort HFA 160-4.5 mcg Inhaler 6 gm] 2 inh IH QAM 02/29/16 Fexofenadine HCl [Vianca] 30 mg PO DAILY 02/29/16 Pnv with Ca,No.72/Iron/FA [Pnv Plus Multivit Tab] 1 tab PO DAILY Gestational Age: 40.5 wks Reason(s) for Admission: Onset of Labor Procedures: Ultrasound Intrapartum Procedure(s): Spontaneous Vaginal Delivery - [place] Data Baby 1 Male at 1 minute: 9 at 5 minutes: 9 Weight: 3.515 kg Home with Mother: Yes Complications: Yes - Tachypnea - Diagnosis Test Laboratory: Temp Pulse Resp BP Pulse Ox 98.0 F 63 16 108/68 96 06/05/16 07:49 06/05/16 07:49 06/05/16 07:49 06/05/16 07:49 06/05/16 07:49 06/02/16 06/03/16 06/04/16 18:49 07:18 10:07 RBC 5.12 4.61 4.62 Hgb 15.1 13.6 13.4 Hct 43.3 39.5 40.1 - Discharge information/Instructions Discharge Activity: Activity As Tolerated, Balance Activity w/Rest, No Lifting Over 10 Pounds, Pelvic Rest, Slowly Increase Activity, No tub bath Discharge Diet: Regular Disposition: HOME, SELF-CARE Follow up with: [facility] in: 4, Weeks
--- NOTE | 2016-06-09 12:59 | Admission Physical ---
Datetime Report Generated by CPN: 06/09/2016 12:59 CURRENT ADMISSION Chief Complaint: Uterine Contractions Indication for Induction: Not Applicable Admit Plan: Admit to Unit; Initiate Labor Protocol Admit Plan- Other: declines epidural ALLERGIES Medication Allergies: No Medication Allergies: No Known Allergies (06/02/2016) Medication Allergies: No Known Allergies (02/29/2016) Latex: No Latex Allergies Food Allergies: None Environmental Allergies: None OBSTETRICAL HISTORY EDC: 05/28/2016 00:00 : 1 Para: 0 Para: 0 Term: 0 : 0 SAB: 0 IAB: 0 Ectopic: 0 Livin Cesareans: 0 VBACs: 0 Multiple Births: 0 Gestational Diabetes: No Rh Sensitization: No Incompetent Cervix: No ERMIAS: No Infertility: No ART Treatment: No Uterine Anomaly: No IUGR: No Hx Previous C/S: No Macrosomia: No Hx Loss/Stillborn: No PIH: No Hx : No Placenta Previa/Abruption: No Depression/PP Depression: No PTL/PROM: No Post Hemorrhage: No Current Procedures: Ultrasound; NST Obstetrical History Comments: G1: current , anterior placenta SEE RECORDS Alcohol: No Marijuana : No Cocaine: No Other Illicit Drugs: No Cigarettes: Former Smoker. [id number] MEDICAL HISTORY Diabetes: No Blood Transfusion: No Pulmonary Disease (Asthma, TB): Yes Breast Disease: No Hypertension: No Phone Representative Surgery: No Heart Disease: No Hosp/Surgery: Yes Autoimmune Disorder: No Anesthetic Complications: No Kidney Disease: No Abnormal Pap Smear: No Neuro/Epilepsy: No Psychiatric Disorders: No Other Medical Diseases: No Hepatitis/Liver Disease: No Significant Family History: No Varicosities/Phlebitis: No Trauma/Violence : No Thyroid Dysfunction: No Medical History Comments: ashtma: simbacort, albuterol as needed. hospitalized as child for [place] at age 6 seasonal allergies INFECTIOUS HISTORY Gonorrhea: No Genital Herpes: No Chlamydia: No Tuberculosis: No Syphilis: No Hepatitis: No HIV/AIDS Exposure: No Rash or Viral Illness: No HPV: No PHYSICAL EXAM General: Normal HEENT: Normal Neurologic: Normal Thyroid: Normal Heart: Normal Lungs: Normal Breast: Normal Back: Normal Abdomen: Normal Genitourinary Exam: Normal Extremities: Normal DTRs: Normal Pelvic Type: Adequate Vital Signs: Reviewed VAGINAL EXAM Dilatation: 6 Effacement: 80 Station: -2 MEMBRANES Membranes: Ruptured Amniotic Fluid Color: Meconium, Heavy FETUS A EGA: 40.5 Monitoring: External US FHR- Baseline: 130 Variability: Moderate 6-25bpm Accelerations: 10X10 Decelerations: None FHR Category: Category I Estimated Weight (gm): 3900 Presentation: Vertex PLANS FOR LABOR AND DELIVERY Pain Management: None Feeding Preference: Breast Benefit of Breast Feed Discussed: Yes Circumcision: Yes INFORMED CONSENT Signature: with User ID: [email or web address]
--- NOTE | 2016-06-10 06:00 | L&D Current Admission ---
Current Admit Datetime Report Generated by CPN: 06/10/2016 06:00 ADMISSION INFORMATION Current Admit Date/Time: 06/02/2016 18:41 (06/02/2016 18:41:Demarco Gallardo RN) Reason for Admission: Onset of Labor (06/02/2016 18:41:Demarco Gallardo RN) Chief Complaint: Contractions (06/02/2016 19:41:Taryn Knight RN) Medications During : Diphenhydramine (Benedryl); Vitamin; Acetaminophen (Tylenol) (06/02/2016 18:41:Demarco Gallardo RN) EGA per Dates: 40.5 (06/02/2016 18:41:QS system process) Method of Arrival: Ambulatory (06/02/2016 18:41:Demarco Gallardo RN) Admitted From: Home (06/02/2016 18:41:Demarco Gallardo RN) Reason for Induction: Not Applicable (06/02/2016 18:41:Demarco Gallardo RN) Records Available: Yes (06/02/2016 18:41:Demarco Gallardo RN) General Admission Information: Reviewed; Updated; Confirmed (06/02/2016 18:41:Demarco Gallardo RN) General Admission Reviewed By: Benji Gallardo RN (06/02/2016 18:41:Demarco Gallardo RN) BELONGINGS/ADVANCED DIRECTIVES Disposition of Belongings: Kept with Patient (06/02/2016 18:41:Demarco Gallardo RN) Comments Regarding Disposition: See [facility] belongings form filled out by pt (06/02/2016 18:41:Demarco Gallardo RN) Advance Direct for Healthcare: No, and Wants No Information (06/02/2016 18:41:Demarco Gallardo RN) Durable Power of Automotive Title Clerk: No (06/02/2016 18:41:Demarco Gallardo RN) Living Will: No (06/02/2016 18:41:Demarco Gallardo RN) Organ Donor: No (06/02/2016 18:41:Demarco Gallardo RN) Pt Rights Information Given: Yes (06/02/2016 18:41:Demarco Gallardo RN) Pt Understands Pt Rights: Yes (06/02/2016 18:41:Demarco Gallardo RN) LEARNING ASSESSMENT Knowledge Level: Understands L_D Process (06/02/2016 18:41:Demarco Gallardo RN) Barriers to Learning: None (06/02/2016 18:41:Demarco Gallardo RN) Learning Readiness: Motivated (06/02/2016 18:41:Demarco Gallardo RN) Learns Best By: 1 to 1 Instruction (06/02/2016 18:41:Demarco Gallardo RN) Learning Needs: Labor and Delivery Process; Pain Management; Symptoms to Report; Treatment Plan; Medication (06/02/2016 18:41:Demarco Gallardo RN) DOMESTIC VIOLANCE SCREENING Dom Viol Threatened/Hurt: No (06/02/2016 18:41:Demarco Gallardo RN) Hx of Abuse/Neglect past 2yrs: No (06/02/2016 18:41:Demarco Gallardo RN) Feel Unsafe Going Home: No (06/02/2016 18:41:Demarco Gallardo RN) Addt'l Observ Indicating Abuse: No (06/02/2016 18:41:Demarco Gallardo RN) Reason Unable to Complete Screen: N/A, Screen Completed (06/02/2016 18:41:Demarco Gallardo RN) Considered Personal Harm/Suicide: No (06/02/2016 18:41:Demarco Gallardo RN) NUTRITIONAL/FUNCTIONAL SCREENING Problem with Appetite >5 Days: No (06/02/2016 18:41:Demarco Gallardo RN) Chew/Swallow Difficulties: No (06/02/2016 18:41:Demarco Gallardo RN) Inappropriate Wt Gain/Loss: No (06/02/2016 18:41:Demarco Gallardo RN) Presence Skin Breakdown/Ulcer: No (06/02/2016 18:41:Demarco Gallardo RN) Special Diet: No (06/02/2016 18:41:Demarco Gallardo RN) Pt Requests Sheet [place] Sander Visit: No (06/02/2016 18:41:Demarco Gallardo RN) Hx of Any of the Following?: N/A (06/02/2016 18:41:Demarco Gallardo RN) New Diagnosis of: N/A (06/02/2016 18:41:Demarco Gallardo RN) Requires Assist w/Ambulation: No (06/02/2016 18:41:Demarco Gallardo RN) Uses Assist Device to Ambulate: No (06/02/2016 18:41:Demarco Gallardo RN) Pt Requires Help w/ADL's: No (06/02/2016 18:41:Demarco Gallardo RN)
--- NOTE | 2016-06-10 06:00 | L&D General Admission ---
General Admit Datetime Report Generated by CPN: 06/10/2016 06:00 INFORMATION Patient Age: 20 (02/29/2016 18:27:QS system process) EDC: 05/28/2016 00:00 (02/29/2016 18:30:Jeanne Rosenthal RN) : 1 (02/29/2016 18:30:Jeanne Rosenthal RN) Para: 0 (06/02/2016 15:46:Jeanne Bernstein RN) Term: 0 (02/29/2016 18:30:Jeanne Rosenthal RN) : 0 (02/29/2016 18:30:Jeanne Rosenthal RN) Spontaneous Abortions: 0 (02/29/2016 18:30:Jeanne Rosenthal RN) Induced Abortions: 0 (02/29/2016 18:30:Jeanne Rosenthal RN) Livin (02/29/2016 18:30:Jeanne Rosenthal RN) Cesareans: 0 (02/29/2016 18:30:Jeanne Rosenthal RN) VBACs: 0 (02/29/2016 18:30:Jeanne Rosenthal RN) Ectopic: 0 (02/29/2016 18:30:Jeanne Rosenthal RN) Multiple Births: 0 (02/29/2016 18:30:Jeanne Rosenthal RN) Baby, Number in Womb: 1 (06/02/2016 15:46:Jeanne Bernstein RN) CARE Primary Career Transition Specialist: [facility] (02/29/2016 18:30:Jeanne Rosenthal RN) Month of 1st Visit: 6 weeks (02/29/2016 18:30:Lety Barrow RN) Adequate Care: Yes (02/29/2016 18:30:Jeanne Rosenthal RN) Prepregnancy Weight (lb): 122 (02/29/2016 18:30:Jeanne Rosenthal RN) Prepregnancy Weight (kg): 55.5 (02/29/2016 18:30:QS system process) Height (in): 63 (06/05/2016 14:27:QS system process) ALLERGIES Medication Allergy: No (02/29/2016 18:30:Jeanne Rosenthal RN) Medication Allergies: No Known Allergies (06/02/2016) (06/02/2016 13:56:QS system process) Latex Allergy: No Latex Allergies (02/29/2016 18:30:Jeanne Rosenthal RN) Food Allergies: None (02/29/2016 18:30:Jeanne Rosenthal RN) Environmental Allergies: None (02/29/2016 18:30:Jeanne Rosenthal RN) COMMUNICATION Primary Language: Cuban (02/29/2016 18:30:Jeanne Rosenthal RN) Medical Tx Preferred Language: Cuban (02/29/2016 18:30:Jeanne Rosenthal RN) DEMOGRAPHICS Address: [address] [place] [id number] (02/29/2016 18:27:QS system process) Zipcode: [address] (02/29/2016 18:27:QS system process) Home (02/29/2016 18:27:QS system process) SSN: [id number] (02/29/2016 18:27:QS system process) Next of Kin Name: ALLYSON TRIPLETT (06/02/2016 13:39:QS system process) Next of Kin (06/02/2016 13:39:QS system process) Next of Kin Relationship: OR (06/02/2016 13:39:QS system process) Date of : 1995 (02/29/2016 18:27:QS system process) Marital Status: Single (02/29/2016 18:27:QS system process) Sex: Female (02/29/2016 18:27:QS system process) Race: (02/29/2016 18:27:QS system process) Ethnicity: Non- or (02/29/2016 18:27:QS system process) Yazidism: None (02/29/2016 18:27:QS system process) DRUG AND ALCOHOL USE Alcohol: No (02/29/2016 18:30:Jeanne Rosenthal RN) Cigarettes: Former Smoker. [id number] (02/29/2016 18:30:Jeanne Rosenthal RN) Marijuana: No (02/29/2016 18:30:Jeanne Rosenthal RN) Cocaine: No (02/29/2016 18:30:Jeanne Rosenthal RN) Other Illicit Drugs: No (02/29/2016 18:30:Jeanne Rosenthal RN) VACCINE HISTORY Influenza Vaccine: No (02/29/2016 18:30:Lety Barrow RN) Pneumococcal Vaccine: No (02/29/2016 18:30:Lety Barrow RN) Tetanus Vaccine: Yes (02/29/2016 18:30:Lety Barrow RN) Tdap Vaccine: Yes (02/29/2016 18:30:Jeanne Bernstein RN) Hepatitis B Vaccine: Yes (02/29/2016 18:30:Lety Barrow RN) Sales Officer: [facility] (02/29/2016 18:30:Jeanne Bernstein RN) Feeding Preference: Breast (02/29/2016 18:30:Lety Barrow RN) Benefit of Breast Feed Discussed: Yes (02/29/2016 18:30:Jeanne Bernstein RN) Circumcision: Yes (02/29/2016 18:30:Lety Barrow RN) Classes Attended: No (02/29/2016 18:30:Lety Barrow RN) Tubal Ligation: No (02/29/2016 18:30:Lety Barrow RN) Tubal Authorization Signed: N/A (02/29/2016 18:30:Lety Barrow RN) Consent: N/A (02/29/2016 18:30:Lety Barrow RN) Consent Signed: N/A (02/29/2016 18:30:Jeanne Bernstein RN) Pain Management Plans: None (02/29/2016 18:30:Lety Barrow RN) Other Labor and Delivery Plans: delayed cord clamping (02/29/2016 18:30:Lety Barrow RN) Support Person: allyson triplett (02/29/2016 18:30:Lety Barrow RN) Support Person Relationship: Other (02/29/2016 18:30:Lety Barrow RN) Other Relationship: fiance (02/29/2016 18:30:Lety Barrow RN) Cultural/Spritual Practice: No (02/29/2016 18:30:Jeanne Bernstein RN) Spir/Cult Dietary Needs: No (02/29/2016 18:30:Jeanne Bernstein RN) LIVING SITUATION/DISCHARGE PLAN Living Arrangements: House (02/29/2016 18:30:Lety Barrow RN) Adequate Access to:: Electric; Heat; Refrigeration; Plumbing/Running water; Phone; Transportation (02/29/2016 18:30:Lety Barrow RN) WIC Program: Yes (02/29/2016 18:30:Lety Barrow RN) Discharge Instrument Lens Generator Person: allyson (02/29/2016 18:30:Lety Barrow RN) Person to Help after Discharge: allyson (02/29/2016 18:30:Lety Barrow RN) Currently Using Commun Resources: Yes (02/29/2016 18:30:Lety Barrow RN) Specify Current Resource Used: Medicaid (02/29/2016 18:30:Lety Barrow RN) Outside Agency/Children Librarian: No (02/29/2016 18:30:Lety Barrow RN) Car Seat for Discharge: Yes (02/29/2016 18:30:Lety Barrow RN) Adoption Requested: No (02/29/2016 18:30:Lety Barrow RN) Pt Contact w/ Post : N/A (02/29/2016 18:30:Lety Barrow RN) LABS Blood Type: A Positive (02/29/2016 18:30:Jeanne Rosenthal RN) Antibody Screen: Negative (02/29/2016 18:30:Jeanne Rosenthal RN) Rho(G) this : Not Applicable (02/29/2016 18:30:Jeanne Rosenthal RN) Hemoglobin: 13.4 (06/04/2016 10:07:QS system process) Hematocrit: 40.1 (06/04/2016 10:07:QS system process) MCV: 87 (06/04/2016 10:07:QS system process) Group Beta Strep: negative (02/29/2016 18:30:Jeanne Bernstein RN) Gonorrhea: Negative (02/29/2016 18:30:Jeanne Bernstein RN) Chlamydia: Negative (02/29/2016 18:30:Jeanne Bernstein RN) RPR/VDRL: Nonreactive (02/29/2016 18:30:Jeanne Rosenthal RN) HIV Exposure Test: Negative (02/29/2016 18:30:Jeanne Rosenthal RN) Hepatitis B: Negative (02/29/2016 18:30:Jeanne Rosenthal RN) Rubella: Immune (02/29/2016 18:30:Jeanne Rosenthal RN) OB/PREVIOUS HISTORY Current Procedures: Ultrasound; NST (02/29/2016 18:30:Jeanne Bernstein RN) History of Previous : No (02/29/2016 18:30:Lety Barrow RN) History of Gestational Diabetes: No (02/29/2016 18:30:Jeanne Bernstein RN) History of PIH: No (02/29/2016 18:30:Jeanne Bernstein RN) History of Incompetent Cervix: No (02/29/2016 18:30:Lety Barrow RN) History of Placenta Previa/Abrup: No (02/29/2016 18:30:Jeanne Bernstein RN) History of Macrosomia: No (02/29/2016 18:30:Jeanne Bernstein RN) History of IUGR: No (02/29/2016 18:30:Jeanne Bernstein RN) History of Hemorrhage: No (02/29/2016 18:30:Lety Barrow RN) History of Loss/Stillborn: No (02/29/2016 18:30:Lety Barrow RN) History of : No (02/29/2016 18:30:Lety Barrow RN) History of D (Rh) Sensitization: No (02/29/2016 18:30:Lety Barrow RN) History Recurrent Loss/Stillborn: No (02/29/2016 18:30:Lety Barrow RN) History Depression/PP Depression: No (02/29/2016 18:30:Lety Barrow RN) History of Uterine Anomaly/ERMIAS: No (02/29/2016 18:30:Lety Barrow RN) History of Infertility: No (02/29/2016 18:30:Lety Barrow RN) History of ART Treatment: No (02/29/2016 18:30:Lety Barrow RN) History of ERMIAS: No (02/29/2016 18:30:Lety Barrow RN) Comments Obstetrical History: G1: current , anterior placenta (02/29/2016 18:30:Lety Barrow RN) MEDICAL HISTORY Med Hx Diabetes: No (02/29/2016 18:30:Lety Barrow RN) Med Hx Hypertension: No (02/29/2016 18:30:Lety Barrow RN) Med Hx Heart Disease: No (02/29/2016 18:30:Lety Barrow RN) Med Hx Autoimmune Disorder: No (02/29/2016 18:30:Lety Barrow RN) Med Hx Kidney Disease/UTI: No (02/29/2016 18:30:Lety Barrow RN) Med Hx Neurologic/Epilepsy: No (02/29/2016 18:30:Lety Barrow RN) Med Hx Psychiatric Disorders: No (02/29/2016 18:30:Lety Barrow RN) Med Hx Hepatitis/Liver Disease: No (02/29/2016 18:30:Lety Barrow RN) Med Hx Varicosities/Phlebitis: No (02/29/2016 18:30:Lety Barrow RN) Med Hx Thyroid Dysfunction: No (02/29/2016 18:30:Lety Barrow RN) Med Hx Trauma/Violence: No (02/29/2016 18:30:Lety Barrow RN) Med Hx Blood Transfusion: No (02/29/2016 18:30:Lety Barrow RN) Med Hx Pulmonary (Asthma,TB): Yes (02/29/2016 18:30:Lety Barrow RN) Med Hx Breast: No (02/29/2016 18:30:Lety Barrow RN) Med Hx DIRECTOR OF BUSINESS APPLICATIONS Surgery: No (02/29/2016 18:30:Lety Barrow RN) Med Hx Hospitalization/Surgery: Yes (02/29/2016 18:30:Lety Barrow RN) Med Hx Anesthetic Complications: No (02/29/2016 18:30:Lety Barrow RN) Med Hx Abnormal Pap Smear: No (02/29/2016 18:30:Lety Barrow RN) Other Medical Diseases: No (02/29/2016 18:30:Lety Barrow RN) Med Hx Significant Family Hx: No (02/29/2016 18:30:Lety Barrow RN) Details of Med/Surg Hx: ashtma: simbacort, albuterol as needed. hospitalized as child for [place]ham at age 6 seasonal allergies (02/29/2016 18:30:Lety Barrow RN) INFECTIOUS HISTORY Inf Hx Gonorrhea: No (02/29/2016 18:30:Lety Barrow RN) Inf Hx Chlamydia: No (02/29/2016 18:30:Lety Barrow RN) Inf Hx Syphilis: No (02/29/2016 18:30:Lety Barrow RN) Inf Hx HIV/AIDS: No (02/29/2016 18:30:Lety Barrow RN) Inf Hx Human Papilloma Virus: No (02/29/2016 18:30:Lety Barrow RN) Inf Hx Pt/Partner Genital Herpes: No (02/29/2016 18:30:Lety Barrow RN) Inf Hx Tuberculosis/Exposure: No (02/29/2016 18:30:Lety Barrow RN) Inf Hx Hepatitis B,C: No (02/29/2016 18:30:Lety Barrow RN) Inf Hx Rash or Viral Illness: No (02/29/2016 18:30:Lety Barrow RN) GENETIC HISTORY Gen Hx Age >=35 at LAUREN: No (02/29/2016 18:30:Lety Barrow RN) Gen Hx Thalassemia: No (02/29/2016 18:30:Lety Barrow RN) Gen Hx Congenital Heart Defect: No (02/29/2016 18:30:Lety Barrow RN) Gen Hx Neural Tube Defect: No (02/29/2016 18:30:Lety Barrow RN) Gen Hx Down's Syndrome: No (02/29/2016 18:30:Lety Barrow RN) Gen Hx Zi-Sachs: No (02/29/2016 18:30:Lety Barrow RN) Gen Hx Domo: No (02/29/2016 18:30:Lety Barrow RN) Gen Hx Familial Dysautonomia: No (02/29/2016 18:30:Lety Barrow RN) Gen Hx Sickle Cell Disease/Trait: No (02/29/2016 18:30:Lety Barrow RN) Gen Hx Hemophilia/Blood Disorder: No (02/29/2016 18:30:Lety Barrow RN) Gen Hx Muscular Dystrophy: No (02/29/2016 18:30:Lety Barrow RN) Gen Hx Cystic Fibrosis: No (02/29/2016 18:30:Lety Barrow RN) Gen Hx [place] Chorea: No (02/29/2016 18:30:Lety Barrow RN) Gen Hx Mental Retardation/Autism: No (02/29/2016 18:30:Lety Barrow RN) Gen Hx Tested for Fragile X: No (02/29/2016 18:30:Lety Barrow RN) Gen Hx Other Inher/Chromosomal: No (02/29/2016 18:30:Lety Barrow RN) Gen Hx Maternal Metabolic DO: No (02/29/2016 18:30:Lety Barrow RN) Gen Hx Pt Father or FOB Defect: No (02/29/2016 18:30:Lety Barrow RN) Gen Hx Other Genetic History: No (02/29/2016 18:30:Lety Barrow RN) Gen Hx Drugs/Meds since LMP: Yes (02/29/2016 18:30:Lety Barrow RN) Gen Hx Medications: PNV, alegra, simbacort, albuterol PRN (02/29/2016 18:30:Lety Barrow RN)
== END 2016-06-05 13:58 | disposition home or self-care (01) | DRG 775 ==
LOC: ER 18:27 → LR 18:41 → 2N 06-03 01:40
PROVIDERS: ADMIT Obstetrics & Gynecology; ATTEND Obstetrics & Gynecology
PROC: 10E0XZZ Delivery of Products of Conception, External Approach (ICD-10-PCS; principal; 2016-06-02)
PROC: 4A1HXCZ Monitoring of Products of Conception, Cardiac Rate, External Approach (ICD-10-PCS; 2016-06-02)
PROC: 3E0234Z Introduction of Serum, Toxoid and Vaccine into Muscle, Percutaneous Approach (ICD-10-PCS; 2016-06-05)
DX: O77.0 Labor and delivery complicated by meconium in amniotic fluid (principal); Z37.0 Single live birth; O99.52 Diseases of the respiratory system complicating childbirth; J45.909 Unspecified asthma, uncomplicated; Z87.891 Personal history of nicotine dependence; Z3A.40 40 weeks gestation of pregnancy; Z23 Encounter for immunization
CPT/HCPCS: 36415; 85025; 85027; 86592; 86850; 86900; 86901; 90715; J2590; J3010; J3490

== ENCOUNTER 2019-04-30 01:42 | Inpatient (IN) | payer BC, MEDICAID ==
[2019-04-30 02:41] LABS: APPEARANCE,URINE CLEAR; BILIRUBIN,URINE NEGATIVE (NEGATIVE); COLOR,URINE STRAW; GLUCOSE, URINE NEGATIVE (NEGATIVE); KETONES,URINE TRACE mg/dL (NEGATIVE); LEUKOCYTE ESTERASE,URINE SMALL (NEGATIVE); NITRITE,URINE NEGATIVE (NEGATIVE); PROTEIN,URINE NEGATIVE (NEGATIVE); URINE SPECIFIC GRAVITY 1.003; UROBILINOGEN,URINE NEGATIVE mg/dL (<2.0)
[2019-04-30 03:03] LABS: URINE AMPHETAMINES SCREEN NEGATIVE; URINE BARBITURATES SCREEN NEGATIVE; URINE BENZODIAZEPINES SCREEN NEGATIVE; URINE COCAINE SCREEN NEGATIVE; URINE MARIJUANA (THC) SCREEN NEGATIVE; URINE METHADONE SCREEN NEGATIVE; URINE PHENCYCLIDINE SCREEN NEGATIVE
[2019-04-30] MEDS ORDERED: OXYTOCIN 10 UNIT/ML VIAL ONE (03:49)
[2019-04-30] MEDS ORDERED: LIDOCAINE 1% INJ-PF (10 MG/ML) 30 ML SDV ONE (03:50)
[2019-04-30] MEDS ORDERED: OXYTOCIN/NORMAL SALINE 20 UNIT/1,000 ML RTUINJ ONE (03:50)
[2019-04-30] MEDS ORDERED: MISOPROSTOL 0.2 MG TABLET ONE (03:50)
[2019-04-30 04:39] LABS: ABSOLUTE EOSINOPHILS # (AUTO) 0.2 10^3/uL (0.0-0.6); ABSOLUTE LYMPHOCYTES (AUTO) 2.1 10^3/uL (0.5-4.7); ABSOLUTE MONOCYTES (AUTO) 0.8 10^3/uL (0.1-1.4); ABSOLUTE NEUT (AUTO) 8.1 10^3/uL (1.7-8.2); BASOPHILS % (AUTO) 0.3 % (0-2); EOSINOPHILS % (AUTO) 2.1 % (0-6); HEMATOCRIT 40.4 % (36.0-47.0); LYMPHOCYTES % (AUTO) 18.5 % (13-45); MEAN CORPUSCULAR HEMOGLOBIN 28.5 pg (27.0-33.4); MEAN CORPUSCULAR HGB CONC 34.7 g/dL (32.0-36.0); MEAN CORPUSCULAR VOLUME 82 fl (80-97); MONOCYTES % (AUTO) 7.3 % (3-13); PLATELET COUNT 165 10^3/uL (150-450); RED BLOOD COUNT 4.93 10^6/uL (3.72-5.28); RED CELL DISTRIBUTION WIDTH 19.1 % (11.5-14.0); SEGMENTED NEUTROPHILS % (AUTO) 71.8 % (42-78); TOTAL CELLS COUNTED % (AUTO) 100 %; WHITE BLOOD COUNT 11.2 10^3/uL (4.0-10.5)
[2019-04-30 04:49] LABS: ANISOCYTOSIS 1+; PLATELET COMMENT ADEQUATE; POLYCHROMASIA 1+
[2019-04-30] MEDS ORDERED: ZOLPIDEM TARTRATE 5 MG TABLET PO PRN (08:59)
[2019-04-30] MEDS ORDERED: NA PHOS,M-B/NA PHOS,DI-BA (ADULT) 133 ML ENEMA PR PRN (08:59)
[2019-04-30] MEDS ORDERED: PROMETHAZINE HCL 25 MG SUPP.RECT PR PRN (08:59)
[2019-04-30] MEDS ORDERED: PROMETHAZINE HCL 25 MG TABLET PO PRN (08:59)
[2019-04-30] MEDS ORDERED: PROMETHAZINE HCL INJ 25 MG/1 ML VIAL IV PRN (08:59)
[2019-04-30] MEDS ORDERED: ACETAMINOPHEN WITH CODEINE #3 TABLET PO PRN ×2 (08:59)
[2019-04-30] MEDS ORDERED: OXYTOCIN/NORMAL SALINE 20 UNIT/1,000 ML RTUINJ IV PRN (08:59)
[2019-04-30] MEDS ORDERED: DIPH/PERTUSS(ACELL)/TETANUS VAC/PF 0.5 ML SYR (>=10YO) IM PRN (08:59)
[2019-04-30] MEDS ORDERED: DIPHENHYDRAMINE HCL 25 MG CAPSULE PO PRN (08:59)
[2019-04-30] MEDS ORDERED: MEASLES,MUMPS&RUBELLA VACC/PF 0.5 ML VIAL SUBCUT PRN (08:59)
[2019-04-30] MEDS ORDERED: PSEUDOEPHEDRINE HCL 30 MG TABLET PO PRN (08:59)
[2019-04-30] MEDS ORDERED: BENZOCAINE/MENTHOL AEROSOL SPRAY 56 ML TOP PRN (08:59)
[2019-04-30] MEDS ORDERED: DIBUCAINE 1% OINTMENT 28 GM TP PRN (08:59)
[2019-04-30] MEDS ORDERED: GLYCERIN/WITCH HAZEL LEAF 1 EACH MED..WIPE TP PRN (08:59)
[2019-04-30] MEDS ORDERED: ACETAMINOPHEN 650 MG SUPP.RECT PR PRN (08:59)
[2019-04-30] MEDS ORDERED: MAGNESIUM HYDROXIDE SUSP 30 ML UDCUP PO PRN (08:59)
--- NOTE | 2019-04-30 09:09 | Warning Signs in Babies ---
VOD Warning Signs Datetime Report Generated by [facility]: 04/30/2019 09:09 VOD#608 -Warning Signs in Babies: Viewed with Parent(s)/Family (04/30/2019 08:50:Kayla Hodgson RN)
[2019-04-30] MEDS ORDERED: BENZOCAINE/MENTHOL AEROSOL SPRAY 56 ML ONE (10:27)
[2019-04-30] MEDS ORDERED: IBUPROFEN 800 MG TABLET ONE (10:27)
[2019-04-30] MEDS: DOCUSATE SODIUM 100 MG CAPSULE PO SCH ×2 (11:18→18:27)
[2019-04-30] MEDS: FAMOTIDINE 20 MG TABLET PO SCH ×2 (11:18→22:16)
[2019-04-30] MEDS: PRENATAL VITAMIN W DHA CAPSULE PO SCH (11:18)
[2019-04-30] MEDS: FERROUS SULFATE 325 MG TABLET PO SCH ×2 (11:18→18:27)
[2019-04-30] MEDS: SENNOSIDES/DOCUSATE 8.6-50 MG 1 EACH TABLET PO SCH (11:19)
[2019-04-30] MEDS: IBUPROFEN 800 MG TABLET PO SCH ×2 (15:08→22:17)
[2019-05-01] MEDS: IBUPROFEN 800 MG TABLET PO SCH ×3 (06:31→21:23)
[2019-05-01 07:50] LABS: HEMATOCRIT 39.7 % (36.0-47.0); HEMOGLOBIN 13.4 g/dL (12.0-15.5); MEAN CORPUSCULAR HEMOGLOBIN 28.4 pg (27.0-33.4); MEAN CORPUSCULAR HGB CONC 33.7 g/dL (32.0-36.0); MEAN CORPUSCULAR VOLUME 84 fl (80-97); PLATELET COUNT 149 10^3/uL (150-450); RED BLOOD COUNT 4.71 10^6/uL (3.72-5.28); RED CELL DISTRIBUTION WIDTH 19.5 % (11.5-14.0); WHITE BLOOD COUNT 11.3 10^3/uL (4.0-10.5)
[2019-05-01] MEDS: FERROUS SULFATE 325 MG TABLET PO SCH ×2 (10:19→18:02)
[2019-05-01] MEDS: DOCUSATE SODIUM 100 MG CAPSULE PO SCH ×2 (10:19→18:02)
[2019-05-01] MEDS: FAMOTIDINE 20 MG TABLET PO SCH ×2 (10:19→21:23)
[2019-05-01] MEDS: PRENATAL VITAMIN W DHA CAPSULE PO SCH (10:19)
[2019-05-01] MEDS: SENNOSIDES/DOCUSATE 8.6-50 MG 1 EACH TABLET PO SCH (10:19)
--- NOTE | 2019-05-01 10:36 | PDOC PROGRESS REPORT ---
Subjective-OB Progress Note for:: 05/01/19 Subjective: Pt is doing well, reports reg diet, light bleeding and voiding without difficulty. No concerns. Physical Exam (OB) Vital Signs: Temp Pulse Resp BP Pulse Ox 97.6 F 72 16 117/60 100 05/01/19 09:21 05/01/19 09:21 05/01/19 09:21 05/01/19 08:20 05/01/19 09:21 Intake & Output 04/30/19 05/01/19 05/02/19 06:59 06:59 06:59 Intake Total 800 Balance 800 Weight 72.3 kg - PIH/Pre-Eclampsia DTR's: 2 + Clonus: Negative Headache: Absent Epigastric Pain: No Visual Changes: No - Lochia Lochia Amount: Small 10-25 ml Lochia Color: Rubra/Red - Abdomen Description: Soft Hernia Present: No Fundal Description: Firm, Midline Fundal Height: u/u - u/2 Objective-Diagnostic Laboratory: 05/01/19 06:44 05/01/19 06:44 WBC 11.3 H RBC 4.71 Hgb 13.4 Hct 39.7 MCV 84 MCH 28.4 MCHC 33.7 RDW 19.5 H Plt Count 149 L Assessment and Plan(PN) - Assessment and Plan (1) (spontaneous vaginal delivery) Is this a current diagnosis for this admission?: Yes (2) Active labor at term Is this a current diagnosis for this admission?: Yes - Time Spent with Patient Time with patient: Less than 15 minutes Medications reviewed and adjusted accordingly: Yes - Disposition Anticipated Discharge: Home Within: within 24 hours
[2019-05-02] MEDS: IBUPROFEN 800 MG TABLET PO SCH (06:11)
[2019-05-02 07:56] VITALS: BP 107/61
[2019-05-02] MEDS: SENNOSIDES/DOCUSATE 8.6-50 MG 1 EACH TABLET PO SCH (09:51)
[2019-05-02] MEDS: FERROUS SULFATE 325 MG TABLET PO SCH (09:51)
[2019-05-02] MEDS: PRENATAL VITAMIN W DHA CAPSULE PO SCH (09:51)
[2019-05-02] MEDS: DOCUSATE SODIUM 100 MG CAPSULE PO SCH (09:51)
[2019-05-02] MEDS: FAMOTIDINE 20 MG TABLET PO SCH (09:54)
--- NOTE | 2019-05-02 10:16 | PDOC DISCHARGE SUMMARY ---
Impression - Admit/DC Date/PCP Admission Date/Primary Care Provider: 04/30/19 03:46 MIKE PEREZ MD Discharge Date: 05/02/19 - Discharge Diagnosis (1) Active labor at term Is this a current diagnosis for this admission?: Yes (2) (spontaneous vaginal delivery) Is this a current diagnosis for this admission?: Yes - Additional Information Discharge Diet: Regular Discharge Activity: Balance Activity w/Rest, Pelvic Rest Referrals: [facility] [Provider Group] Prescriptions: Ibuprofen [Motrin 800 mg Tablet] 800 mg PO Q8HP PRN #60 tablet PRN Reason: Home Medications: Albuterol Sulfate [Proair HFA Inhalation Aerosol 8.5 gm MDI] 2 inh IH Q4 PRN 02/29/16 Budesonide/Formoterol Fumarate [Symbicort HFA 160-4.5 mcg Inhaler 6 gm] 2 inh IH QAM 02/29/16 Fexofenadine HCl [Vianca] 30 mg PO DAILY 02/29/16 Pnv,Calcium 72/Iron/Folic Acid [Pnv Plus Multivit Tab] 1 tab PO DAILY 02/29/16 Ibuprofen [Motrin 800 mg Tablet] 800 mg PO Q8HP PRN #60 tablet 05/02/19 HPI Gestational Age: 40+5 Reason(s) for Admission: Onset of Labor Procedures: NST Intrapartum Procedure(s): Spontaneous Vaginal Delivery Results Laboratory Results: WBC 11.3 10^3/uL (4.0-10.5) H 05/01/19 06:44 RBC 4.71 10^6/uL (3.72-5.28) 05/01/19 06:44 Hgb 13.4 g/dL (12.0-15.5) 05/01/19 06:44 Hct 39.7 % (36.0-47.0) 05/01/19 06:44 MCV 84 fl (80-97) 05/01/19 06:44 MCH 28.4 pg (27.0-33.4) 05/01/19 06:44 MCHC 33.7 g/dL (32.0-36.0) 05/01/19 06:44 RDW 19.5 % (11.5-14.0) H 05/01/19 06:44 Plt Count 149 10^3/uL (150-450) L 05/01/19 06:44 Lymph % (Auto) 18.5 % (13-45) 04/30/19 04:08 [place] % (Auto) 7.3 % (3-13) 04/30/19 04:08 Eos % (Auto) 2.1 % (0-6) 04/30/19 04:08 Baso % (Auto) 0.3 % (0-2) 04/30/19 04:08 Absolute Neuts (auto) 8.1 10^3/uL (1.7-8.2) 04/30/19 04:08 Absolute Lymphs (auto) 2.1 10^3/uL (0.5-4.7) 04/30/19 04:08 Absolute Monos (auto) 0.8 10^3/uL (0.1-1.4) 04/30/19 04:08 Absolute Eos (auto) 0.2 10^3/uL (0.0-0.6) 04/30/19 04:08 Absolute Basos (auto) 0.0 10^3/uL (0.0-0.2) 04/30/19 04:08 Seg Neutrophils % 71.8 % (42-78) 04/30/19 04:08 Platelet Comment ADEQUATE 04/30/19 04:08 Polychromasia 1+ 04/30/19 04:08 Anisocytosis 1+ 04/30/19 04:08 Urine Color STRAW 04/30/19 01:51 Urine Appearance CLEAR 04/30/19 01:51 Urine pH 7.0 (5.0-9.0) 04/30/19 01:51 Ur Specific [place] 1.003 04/30/19 01:51 Urine Protein NEGATIVE mg/dL (NEGATIVE) 04/30/19 01:51 Urine Glucose (UA) NEGATIVE mg/dL (NEGATIVE) 04/30/19 01:51 Urine Ketones TRACE mg/dL (NEGATIVE) H 04/30/19 01:51 Urine Blood NEGATIVE (NEGATIVE) 04/30/19 01:51 Urine Nitrite NEGATIVE (NEGATIVE) 04/30/19 01:51 Urine Bilirubin NEGATIVE (NEGATIVE) 04/30/19 01:51 Urine Urobilinogen NEGATIVE mg/dL (<2.0) 04/30/19 01:51 Ur Leukocyte Esterase SMALL (NEGATIVE) H 04/30/19 01:51 Urine Ascorbic Acid NEGATIVE (NEGATIVE) 04/30/19 01:51 Urine Opiates Screen NEGATIVE 04/30/19 01:51 Urine Methadone Screen NEGATIVE 04/30/19 01:51 Ur Barbiturates Screen NEGATIVE 04/30/19 01:51 Ur Phencyclidine Scrn NEGATIVE 04/30/19 01:51 Ur Amphetamines Screen NEGATIVE 04/30/19 01:51 U Benzodiazepines Scrn NEGATIVE 04/30/19 01:51 Urine Cocaine Screen NEGATIVE 04/30/19 01:51 U Marijuana (THC) Screen NEGATIVE 04/30/19 01:51 Blood Type A POSITIVE 04/30/19 04:08 Antibody Screen NEGATIVE 04/30/19 04:08 Plan Plan of Treatment: follow up in 4 weeks at [facility] for post check
--- NOTE | 2019-05-02 11:05 | Admission Physical ---
Datetime Report Generated by CPN: 05/02/2019 11:05 CURRENT ADMISSION Chief Complaint: Uterine Contractions Indication for Induction: Not Applicable Admit Impression : Term, Intrauterine ; Active Labor; Intact Membranes Admit Plan: Admit to Unit; Initiate Labor Protocol ALLERGIES Medication Allergies: No Medication Allergies: No Known Allergies (04/30/2019) Latex: No Latex Allergies OBSTETRICAL HISTORY EDC: 04/25/2019 00:00 : 2 Para: 1 Term: 1 : 0 SAB: 0 IAB: 0 Ectopic: 0 Livin Cesareans: 0 VBACs: 0 Multiple Births: 0 Gestational Diabetes: No Rh Sensitization: No Incompetent Cervix: No ERMIAS: No Infertility: No ART Treatment: No Uterine Anomaly: No IUGR: No Hx Previous C/S: No Macrosomia: No Hx Loss/Stillborn: No PIH: No Hx : No Placenta Previa/Abruption: No Depression/PP Depression: No PTL/PROM: No Post Hemorrhage: No Current Procedures: Ultrasound Obstetrical History Comments: G1: 2017, , boy 7# 12 oz G2: current SEE RECORDS Alcohol: No Marijuana : No Cocaine: No Other Illicit Drugs: No MEDICAL HISTORY Diabetes: No Blood Transfusion: No Pulmonary Disease (Asthma, TB): Yes Breast Disease: No Hypertension: No Charge Hand Surgery: No Heart Disease: No Hosp/Surgery: Yes Autoimmune Disorder: No Anesthetic Complications: No Kidney Disease: No Abnormal Pap Smear: No Neuro/Epilepsy: No Psychiatric Disorders: No Other Medical Diseases: No Hepatitis/Liver Disease: No Significant Family History: No Varicosities/Phlebitis: No Trauma/Violence : No Thyroid Dysfunction: No Medical History Comments: childbirth, asthma (takes meds) INFECTIOUS HISTORY Gonorrhea: No Genital Herpes: No Chlamydia: No Tuberculosis: No Syphilis: No Hepatitis: No HIV/AIDS Exposure: No Rash or Viral Illness: No HPV: No PHYSICAL EXAM General: Normal HEENT: Normal Neurologic: Normal Thyroid: Deferred Heart: Normal Lungs: Normal Breast: Deferred Back: Normal Abdomen: Normal Genitourinary Exam: Normal Extremities: Normal DTRs: Normal Pelvic Type: Adequate Vital Signs: Reviewed VAGINAL EXAM Dilatation: 6 Effacement: 90 Station: -1 Contraction Comments: q 3 MEMBRANES Membranes: Intact FETUS A EGA: 40.5 Monitoring: External US FHR- Baseline: 125 Variability: Moderate 6-25bpm Accelerations: 15X15 Decelerations: None FHR Category: Category I Presentation: Vertex Admit Comment: 24yo at 40+5ega presents for contractions and changed from 2-3 to 5cm and admitted for active labor. GBS negative. Prior delivery 2017 7#12oz and baby went to NICU because patient was given Nubain/Phenergan and delivered shortly afterwards. Patient does not wish to have pain meds and declines epidural. H/o Asthma. Cvx evaluated at 0700 and now 5-6 and SROM at 0603. Patient thinks she is 7cm because of her (Annotations: Data stored by CPN on behalf of user) PLANS FOR LABOR AND DELIVERY Labor and Delivery: Plan Pain Management: Natural Feeding Preference: Breast Benefit of Breast Feed Discussed: Yes Circumcision: Yes
--- NOTE | 2019-05-04 15:05 | Delivery Summary ---
Del Sum A-C Datetime Report Generated by CPN: 05/04/2019 15:05 DELIVERY PERSONNEL DELIVERY PERSONNEL: [id number] Delivery Doctor:: Natalee Tam MD Labor and Delivery Nurse:: Kayla Hodgson RNprocess mold technician Nurse:: Symone Lau RN Nursery Nurse:: Trinh Mcarthur RN Nuclear Medical Technologist/MANAGER GAME: Pbalito Aguirre, DIGITAL CAMPAIGN SPECIALIST MATERNAL INFORMATION Delivery Anesthesia: None Medications After Delivery: Pitocin Bolus-Please Comment Meds After Delivery Comment: Pitocin 20 units IV in 1000ml NS Estimated Blood Loss (ml): 200 Delivery QBL: 200 Maternal Complications: None Provider Comments: manual removal of placenta due to poor placental quality. residual membranes removed with uterine exploration. LABOR SUMMARY EDC: 04/25/2019 00:00 No. Babies in Womb: 1 Attempted: No Labor Anesthesia: None LABOR INFORMATION Reason for Induction: Not Applicable Onset of Labor: 04/30/2019 03:20 Complete Dilatation: 04/30/2019 08:22 Oxytocin: Augmentation Group B Beta Strep: NEGATIVE Antibiotics # of Doses: 0 Antibiotics Time of Last Dose: N/A Name of Antibiotic Given: N/A Steroids Given: None Reason Steroids Not Administered: Not Applicable MEMBRANES Membranes Rupture Method: Spontaneous Rupture of Membranes: 04/30/2019 06:03 Length of Rupture (hr): 2.55 Amniotic Fluid Color: Clear Amniotic Fluid Amount: Small STAGES OF LABOR Stage 1 hr: 5 Stage 1 min: 2 Stage 2 hr: 0 Stage 2 min: 14 Stage 3 hr: 0 Stage 3 min: 5 Total Time in Labor hr: 5 Total Time in Labor min: 21 VAGINAL DELIVERY Episiotomy: None Laceration #1: None Laceration Extension #1: N/A Laceration Repair: Not Applicable Sponge Count Correct: N/A Sharps Count Correct: N/A CSECTION DELIVERY Primary Indication: N/A Secondary Indication: N/A CSection Incidence: N/A Labor: N/A Elective: N/A CSection Incision: N/A BABY A INFORMATION Delivery Date/Time: 04/30/2019 08:36 Method of Delivery: Vaginal Born in Route : No : N/A Forceps: N/A Vacuum Extraction: N/A Shoulder Dystocia : No PRESENTATION/POSITION BABY A Presentation: Cephalic Presentation: Cephalic Presentation: Cephalic Cephalic Presentation: Vertex Breech Presentation: N/A PLACENTA INFORMATION BABY A Placenta Delivery Time : 04/30/2019 08:41 Placenta Method of Delivery: Manual Removal Placenta Method of Delivery: Manual Removal Placenta Status: Delivered SCORES BABY A Heart Rate 1 min: >100 bpm Resp Effort 1 min: Slow, Irregular Reflex Irritability 1 min: [place] Muscle Tone 1 min: Some Flexion of Extremities Color 1 min: Body [place], Extremities Blue Resuscitation Effort 1 min: Tactile Stimulation SCORE 1 MIN: 6 Heart Rate 5 min: >100 bpm Resp Effort 5 min: [place] Reflex Irritability 5 min: Cough or Sneeze or Pulls Away Muscle Tone 5 min: Active Motion Color 5 min: Body [place], Extremities Blue SCORE 5 MIN: 9 Heart Rate 10 min: >100 bpm Resp Effort 10 min: Slow, Irregular Reflex Irritability 10 min: Cough or Sneeze or Pulls Away Muscle Tone 10 min: Active Motion Color 10 min: Body [place], Extremities Blue SCORE 10 MIN: 8 INFORMATION BABY A Gestational Age at Delivery: 40.5 Gestational Status: Full Term- 39- 40.6 Weeks Infant Outcome : Liveborn Condition : Stable Sex: Female Infant Sex: Female IDENTIFICATION BABY A Infant Verification Date/Time: 04/30/2019 08:59 ID Band Number: [id number] Mother's Name Verified: Yes RN Verifying Infant: M. Gokul RN, T. Timothy RN CORD INFORMATION BABY A No. Cord Vessels: 3 Nuchal Cord : N/A Infant Suction: None BABY B INFORMATION : N/A SIGNATURES Signature: with User ID: Isabel
== END 2019-05-02 13:50 | disposition home or self-care (01) | DRG 807 ==
LOC: LC 01:42 → LR 03:46 → 2S 11:00
PROVIDERS: ADMIT Student in an Organized Health Care Education/Training Program; ATTEND Obstetrics & Gynecology
PROC: 10E0XZZ Delivery of Products of Conception, External Approach (ICD-10-PCS; principal; 2019-04-30)
DX: O99.52 Diseases of the respiratory system complicating childbirth (principal); Z37.0 Single live birth; Z3A.40 40 weeks gestation of pregnancy
CPT/HCPCS: 36415; 80307; 81005; 85025; 85027; 86592; 86850; 86900; 86901; 88307; 94760; J2590; J3490